=== PATIENT | female | born 1990 | race Caucasian/White ===

== ENCOUNTER 2017-07-24 19:35 | Emergency (ER) | payer OTHER ==
[2017-07-24 20:09] VITALS: BP 119/64; PULSE 78; RESP 17; TEMP 98.5; O2SAT 100; BMI 25.6
[2017-07-24 20:23] LABS: BASO # 0.03 K/mm3 (0.0-2.0); BASO % 0.4 % (0.0-3.0); EOS # 0.1 (0.0-0.7); EOS % 0.7 % (1.5-5.0); GRAN % 58.2 % (50.0-68.0); HEMOGLOBIN 12.5 g/dL (12.0-16.0); LYMPH # 2.3 (1.2-3.4); LYMPH % 34.1 % (22.0-35.0); MEAN CELL VOLUME 89.9 fl (80.0-105.0); MEAN CORPUSCULAR HEMOGLOBIN 29.4 pg (25.0-35.0); MEAN CORPUSCULAR HGB CONC 32.7 g/dl (31.0-37.0); MEAN PLATELET VOLUME 9.8 fl (7.0-11.0); MONO # 0.5 (0.1-0.6); MONO % 6.6 % (1.0-6.0); RBC 4.25 10^6/uL (3.5-6.1); RED CELL DISTRIBUTION WIDTH 13.4 % (11.5-14.5); WHITE BLOOD COUNT 6.9 10^3/ul (4.5-11.0)
[2017-07-24 20:34] LABS: ALB/GLOB RATIO 1.2 (1.1-1.8); ALBUMIN 4.2 g/dL (3.0-4.8); ALT/SGPT 29 U/L (7-56); AST/SGOT 26 U/L (14-36); BLOOD UREA NITROGEN 21 mg/dL (7-21); CALCIUM 9.9 mg/dL (8.4-10.5); GFR AFRICAN-AMERICAN > 60; GFR NON-AFRICAN AMERICAN > 60
[2017-07-24 20:45] LABS: TROPONIN I < 0.01 ng/mL
[2017-07-24 20:50] LABS: URINE BILIRUBIN NEGATIVE (NEGATIVE); URINE BLOOD NEGATIVE (NEGATIVE); URINE GLUCOSE (UA) NEGATIVE (NEGATIVE); URINE LEUKOCYTE ESTERASE SMALL Leu/uL (NEGATIVE); URINE NITRATE NEGATIVE (NEGATIVE); URINE PROTEIN NEGATIVE mg/dL (<30 mg/dL); URINE UROBILINOGEN 0.2 E.U./dL (<1 E.U./dL)
[2017-07-24 20:53] LABS: URINE APPEARANCE CLEAR (CLEAR); URINE COLOR YELLOW (YELLOW)
[2017-07-24 21:10] LABS: URINE BACTERIA FEW (NEG); URINE RBC NEGATIVE /hpf (0-2)
--- NOTE | 2017-07-24 21:20 | ED PDOC ---
Arrival/HPI - General Chief Complaint: Chest Pain Time Seen by Provider: 07/24/17 19:38 Historian: Patient - History of Present Illness Narrative History of Present Illness (Text): 07/24/17 20:10 Indira Salazar is a 27 year old female who presents to the Emergency department complaining of left-sided chest pain today. Patient states pain is worse with deep inspirations, movement, and palpation of the area. Patient denies any fever, chills, shortness of breath, nausea, vomiting, diarrhea, urinary symptoms, back pain, neck pain, headache, dizziness, or any other complaints. Symptom Onset: Gradual Symptom Course: Unchanged Activities at Onset: Light Context: Home Past Medical History - Provider Review Nursing Documentation Reviewed: Yes - Genitourinary/Gynecological Hx Genitourinary Disorders: Yes Other/Comment: endometriosis - Psychiatric Hx Psychophysiologic Disorder: No Hx Substance Use: No Family/Social History - Physician Review Nursing Documentation Reviewed: Yes Family/Social History: Unknown Family HX Smoking Status: Never Smoked Hx Alcohol Use: No Hx Substance Use: No Allergies/Home Meds Allergies/Adverse Reactions: Allergies No Known Allergies Allergy (Verified 07/24/17 20:10) Review of Systems - Physician Review All systems were reviewed & negative as marked: Yes - Review of Systems Constitutional: Normal. absent: Fevers Eyes: Normal ENT: Normal Respiratory: Normal. absent: SOB, Cough Cardiovascular: Chest Pain Gastrointestinal: Normal. absent: Abdominal Pain, Diarrhea, Nausea, Vomiting Genitourinary Female: Normal. absent: Dysuria, Frequency, Hematuria, Urine Output Changes Musculoskeletal: Normal. absent: Back Pain, Neck Pain Skin: Normal. absent: Rash Neurological: Normal. absent: Headache, Dizziness Endocrine: Normal Hemo/Lymphatic: Normal Psychiatric: Normal Physical Exam Vital Signs Reviewed: Yes Vital Signs Temp Pulse Resp BP Pulse Ox 07/24/17 19:44 98.5 F 78 17 119/64 100 Temperature: Afebrile Blood Pressure: Normal Pulse: Regular Respiratory Rate: Normal Appearance: Positive for: Well-Appearing, Non-Toxic, Comfortable Pain Distress: None Mental Status: Positive for: Alert and Oriented X 3 - Systems Exam Head: Present: Atraumatic, Normocephalic Pupils: Present: PERRL Extroacular Muscles: Present: EOMI Conjunctiva: Present: Normal Mouth: Present: Moist Mucous Membranes Neck: Present: Normal Range of Motion Respiratory/Chest: Present: Clear to Auscultation, Good Air Exchange, Tender to Palpation (Left-sided anterior chest wall tenderness). No: Respiratory Distress , Accessory Muscle Use Cardiovascular: Present: Regular Rate and Rhythm, Normal S1, S2. No: Murmurs Abdomen: Present: Normal Bowel Sounds. No: Tenderness, Distention, Peritoneal Signs Back: Present: Normal Inspection Upper Extremity: Present: Normal Inspection. No: Cyanosis, Edema Lower Extremity: Present: Normal Inspection. No: Edema Neurological: Present: GCS=15, CN II-XII Intact, Speech Normal Skin: Present: Warm, Dry, Normal Color. No: Rashes Psychiatric: Present: Alert, Oriented x 3, Normal Insight, Normal Concentration Medical Decision Making ED Course and Treatment: 07/24/17 20:10 Impression: 27 year old female complaining of left-sided chest pain. Differential Diagnosis included but are not limited to: musculoskeletal pain vs. costochonritis vs. PE vs. chest pain Plan: -- EKG -- Chest X-ray -- Labs, cardiac enzymes, D-dimer -- Urinalysis, urine cultures -- Toradol -- Reassess and disposition Progress Notes: Reviewed EKG, sinus rhythm at 80 bpm. Sinus arrhythmia. No acute changes. 07/24/17 21:20 Chest X-ray reviewed, shows no acute processes. 07/24/17 21:35 On re-evaluation, patient feels better and is in no acute distress. I have discussed the results and plan with the patient, who expresses understanding. Patient in agreement with plan to be discharged home. Patient is stable for discharge. Patient was instructed to follow up with physician or return if symptoms worsen or new concerning symptoms arise. - Lab Interpretations Lab Results: 07/24/17 19:50 07/24/17 19:50 Lab Results 07/24/17 20:20: Urine Color Yellow, Urine Appearance Clear, Urine pH 6.0, Ur Specific [place] >= 1.030, Urine Protein Negative, Urine Glucose (UA) Negative, Urine Ketones Negative, Urine Blood Negative, Urine Nitrate Negative, Urine Bilirubin Negative, Urine Urobilinogen 0.2, Ur Leukocyte Esterase Small H, Urine RBC Negative, Urine WBC 5 - 10, Ur Epithelial Cells 6 - 8, Urine Bacteria Few 07/24/17 19:50: Sodium 140, Potassium 3.6, Chloride 104, Carbon Dioxide 25, Anion Gap 15, BUN 21, Creatinine 0.9, Est GFR ( Amer) > 60, Est GFR (Non- Af Amer) > 60, Random Glucose 87, Calcium 9.9, Magnesium 2.0, Total Bilirubin 0.3, AST 26, ALT 29, Alkaline Phosphatase 49, Lactate Dehydrogenase 435, Total Creatine Kinase 105, Troponin I < 0.01, Total Protein 7.7, Albumin 4.2, Globulin 3.5, Albumin/Globulin Ratio 1.2 07/24/17 19:50: D-Dimer, Quantitative 200 07/24/17 19:50: WBC 6.9, RBC 4.25, Hgb 12.5, Hct 38.2, MCV 89.9, MCH 29.4, MCHC 32.7, RDW 13.4, Plt Count 236, MPV 9.8, Gran % 58.2, Lymph % (Auto) 34.1, Barry % (Auto) 6.6 H, Eos % (Auto) 0.7 L, Baso % (Auto) 0.4, Gran # 4.00, Lymph # ( Auto) 2.3, Barry # (Auto) 0.5, Eos # (Auto) 0.1, Baso # (Auto) 0.03 I have reviewed the lab results: Yes - RAD Interpretation Radiology Orders: 07/24/17 20:25 CHEST PORTABLE [RAD] Stat Milking Worker: ED Physician - EKG Interpretation Interpreted by ED Physician: Yes Type: 12 lead EKG - Medication Orders Current Medication Orders: Discontinued Medications Ketorolac Tromethamine (Toradol) 30 mg IVP ONCE ONE Stop: 07/24/17 20:43 Last Admin: 07/24/17 20:59 Dose: 30 mg MAR Pain Assessment Document 07/24/17 20:59 CNR (Rec: 07/24/17 21:00 CNR [id number]) Pain Reassessment Is this a pain reassessment? Yes IVP Administration Document 07/24/17 20:59 CNR (Rec: 07/24/17 21:00 CNR [id number]) Charges for Administration # of IVP Administrations 1 - Scribe Statement The provider has reviewed the documentation as recorded by the Scribdarrius Garcia All medical record entries made by the Scribe were at my direction and personally dictated by me. I have reviewed the chart and agree that the record accurately reflects my personal performance of the history, physical exam, medical decision making, and the department course for this patient. I have also personally directed, reviewed, and agree with the discharge instructions and disposition. Disposition/Present on Arrival - Present on Arrival Any Indicators Present on Arrival: No History of DVT/PE: No History of Uncontrolled Diabetes: No Urinary Catheter: No History of Decub. Ulcer: No History Surgical Site Infection Following: None - Disposition Have Diagnosis and Disposition been Completed?: Yes Diagnosis: Chest pain Disposition: HOME/ ROUTINE Disposition Time: 21:35 Condition: GOOD Discharge Instructions (ExitCare): Shingles, Chest Pain That Is Not Caused by the Heart (DC), Chest Pain (ED) Prescriptions: Famciclovir [Famvir] 500 mg PO TID #21 tab Referrals: Papo Jack MD [Primary Care Provider] - Follow up with primary Forms: [facility] ([place]), WORK NOTE
--- NOTE | 2017-07-25 09:49 | RAD ---
HISTORY: Chest pain COMPARISON: No prior. FINDINGS: LUNGS: The lungs are well inflated and clear. PLEURA: No significant pleural effusion identified, no pneumothorax apparent. CARDIOVASCULAR: Normal. OSSEOUS STRUCTURES: No significant abnormalities. VISUALIZED UPPER ABDOMEN: Normal. OTHER FINDINGS: None. IMPRESSION: No active pulmonary disease.
--- NOTE | 2017-07-25 10:45 | CARD ---
APPROVED REPORT EKG Measurement Heart [id number] <Conclusion> Sinus rhythm with marked sinus arrhythmia Otherwise normal ECG
== END 2017-07-24 21:38 | disposition home or self-care (01) ==
LOC: ED 19:35
DX: R07.9 Chest pain, unspecified (principal)
CPT/HCPCS: 71045; 80053; 81001; 82550; 83615; 83735; 84484; 85025; 85378; 87086; 93005; 96374; 99283; J1885

== ENCOUNTER 2018-01-06 14:16 | Inpatient (IN) | payer MEDICAID, OTHER ==
[2018-01-06] MEDS ORDERED: Sodium Chloride 0.9% 1,000 ML IV STA (14:41)
[2018-01-06 15:11] LABS: VENOUS BLOOD GAS PO2 39 mm/Hg (30-55); VENOUS BLOOD PH 7.27 (7.32-7.43)
[2018-01-06 15:14] LABS: BASO # 0.02 K/mm3 (0.0-2.0); BASO % 0.3 % (0.0-3.0); EOS # 0.1 (0.0-0.7); EOS % 0.8 % (1.5-5.0); GRAN # 3.76 (1.4-6.5); GRAN % 57.1 % (50.0-68.0); HEMOGLOBIN 13.9 g/dL (12.0-16.0); LYMPH # 2.2 (1.2-3.4); MEAN CELL VOLUME 87.9 fl (80.0-105.0); MEAN CORPUSCULAR HEMOGLOBIN 29.4 pg (25.0-35.0); MEAN CORPUSCULAR HGB CONC 33.4 g/dl (31.0-37.0); MEAN PLATELET VOLUME 10.2 fl (7.0-11.0); MONO # 0.5 (0.1-0.6); MONO % 7.8 % (1.0-6.0); RBC 4.73 10^6/uL (3.5-6.1); RED CELL DISTRIBUTION WIDTH 13.3 % (11.5-14.5); WHITE BLOOD COUNT 6.6 10^3/ul (4.5-11.0)
[2018-01-06 15:22] LABS: INR 1.06; PARTIAL THROMBOPLASTIN TIME 31.7 Seconds (25.1-36.5); PROTHROMBIN TIME 12.1 SECONDS (9.4-12.5)
[2018-01-06 15:24] LABS: ALB/GLOB RATIO 1.3 (1.1-1.8); ALBUMIN 4.3 g/dL (3.0-4.8); ALT/SGPT 21 U/L (7-56); AST/SGOT 20 U/L (14-36); BLOOD UREA NITROGEN 12 mg/dL (7-21); CALCIUM 9.9 mg/dL (8.4-10.5); GFR AFRICAN-AMERICAN > 60; GFR NON-AFRICAN AMERICAN > 60; SALICYLATE < 1 mg/dL (2.0-20.0)
--- NOTE | 2018-01-06 15:37 | ED PDOC ---
Arrival/HPI - General Chief Complaint: Psychiatric Evaluation Time Seen by Provider: 01/06/18 14:31 - Critical Care Critical Care Minutes: 30 minutes - History of Present Illness Narrative History of Present Illness (Text): 01/06/18 15:37 A 27 year old female, whose past medical history includes depression, presents to the emergency department accompanied by mother complaining of suicide ideation. Mother reports her daughter called her at work saying she was suicidal. Patients mother came home to find her daughter vomiting next to an empty bottle of pills to which she called EMS. Mother notes she does not know whether the empty body of pills was midol or tylenol. Patient has a hx of depression. Patient has had no prior hospitalization and no prior suicide attempts. Patient is complaining of epigastric pain and says she wants to go home. Communication is limited due to patients cooperation, HPI and ROS affected. 01/06/18 16:02 Time/Duration: 4-6 hours (earlier today ) Symptom Onset: Gradual Symptom Course: Unchanged Context: Home Past Medical History - Provider Review Nursing Documentation Reviewed: Yes - Genitourinary/Gynecological Hx Genitourinary Disorders: Yes Other/Comment: endometriosis - Psychiatric Hx Psychophysiologic Disorder: No Hx Substance Use: No Family/Social History - Physician Review Nursing Documentation Reviewed: Yes Family/Social History: Unknown Family HX Smoking Status: Never Smoked Hx Alcohol Use: No Hx Substance Use: No Allergies/Home Meds Allergies/Adverse Reactions: Allergies No Known Allergies Allergy (Verified 01/06/18 14:52) Home Medications: Home Meds Medication Instructions Recorded Confirmed No Known Home Med 01/06/18 01/06/18 Review of Systems - Review of Systems Systems not reviewed;Unavailable: Uncooperative Gastrointestinal: Nausea, Vomiting, Other (epigastric pain) Physical Exam Vital Signs Reviewed: Yes Vital Signs Temp Pulse Resp BP Pulse Ox 01/06/18 14:35 98.2 F 82 18 119/73 100 01/06/18 14:26 97.8 F 82 18 110/73 99 Temperature: Afebrile Blood Pressure: Normal Pulse: Regular Respiratory Rate: Normal Appearance: Positive for: Well-Appearing, Non-Toxic, Comfortable Pain Distress: None Mental Status: Positive for: Alert and Oriented X 3 - Systems Exam Head: Present: Atraumatic, Normocephalic Pupils: Present: PERRL Extroacular Muscles: Present: EOMI Conjunctiva: Present: Normal Mouth: Present: Moist Mucous Membranes Neck: Present: Normal Range of Motion Respiratory/Chest: Present: Clear to Auscultation, Good Air Exchange. No: Respiratory Distress, Accessory Muscle Use Cardiovascular: Present: Regular Rate and Rhythm, Normal S1, S2. No: Murmurs Abdomen: No: Tenderness, Distention, Peritoneal Signs Back: Present: Normal Inspection Upper Extremity: Present: Normal Inspection. No: Cyanosis, Edema Lower Extremity: Present: Normal Inspection. No: Edema Neurological: Present: GCS=15, CN II-XII Intact, Speech Normal Skin: Present: Warm, Dry, Normal Color. No: Rashes Psychiatric: Present: Alert, Oriented x 3, Depressed Mood, Suicidal Ideation ( tearful and agitated), Other Medical Decision Making ED Course and Treatment: 01/06/18 15:40 Impression: A 27 year old female, whose past medical history includes depression , presents to the emergency department accompanied by mother complaining of suicide ideation. Plan: -- Venous blood gas -- EKG -- Drug Screen, Urine Stat -- EKG -- Chest X-ray -- Zofran -- IV fluids -- AES Crisis Evaluation -- HCG -- Urinalysis -- Reassess and disposition Prior Visits: Notes and results from previous visits were reviewed. Patient was last seen in the emergency department on EKG shows NSR at 66bpm with normal intervals and no ST changes Progress Notes: 01/06/18 15:43 Spoke to Poison control. Based on Tylenol level, recommended to start on NAC immediately. Also recommended repeat labs in 1 hour before ending 21 hour treatment 01/06/18 15:[address] Francois, hospitalist, who is aware and agrees with Emergency department management plan of recommendation to ICU. Case discussed with Dr. Manzano, ICU, patient recommended to ICU. Requesting GI consult - Lab Interpretations Lab Results: 01/06/18 14:40 01/06/18 14:40 Lab Results 01/06/18 15:45: Urine Color Yellow, Urine Appearance Clear, Urine pH 7.0, Ur Specific [place] 1.010, Urine Protein Negative, Urine Glucose (UA) Negative, Urine Ketones Negative, Urine Blood Trace-intact H, Urine Nitrate Negative, Urine Bilirubin Negative, Urine Urobilinogen 0.2, Ur Leukocyte Esterase Moderate H, Urine RBC Pending, Urine WBC Pending, Urine HCG, Qual Negative 01/06/18 14:40: Beta HCG, Quant < 2.39 01/06/18 14:40: pO2 39, VBG pH 7.27 L, VBG pCO2 59.0, VBG HCO3 27.1, VBG Total CO2 28.9 H, VBG O2 Sat (Calc) 71.6 H, VBG Base Excess -1.0 L, VBG Potassium 4.1 , Sodium 140.0, Chloride 105.0, Glucose 90, Lactate 2.2 H, FiO2 21.0, Venous Blood Potassium 4.1 01/06/18 14:40: PT 12.1, INR 1.06, APTT 31.7 01/06/18 14:40: Alcohol, Quantitative < 10 01/06/18 14:40: Salicylates < 1 L, Acetaminophen 47.0 H 01/06/18 14:40: Sodium 143, Chloride 105, Potassium 4.5, Carbon Dioxide 26, Anion Gap 16, BUN 12, Creatinine 0.8, Est GFR ( Amer) > 60, Est GFR (Non- Af Amer) > 60, Random Glucose 89, Calcium 9.9, Magnesium 2.0, Total Bilirubin 0.5, AST 20, ALT 21, Alkaline Phosphatase 55, Total Creatine Kinase 109, Total Protein 7.4, Albumin 4.3, Globulin 3.2, Albumin/Globulin Ratio 1.3 01/06/18 14:40: WBC 6.6, RBC 4.73, Hgb 13.9, Hct 41.6, MCV 87.9, MCH 29.4, MCHC 33.4, RDW 13.3, Plt Count 250, MPV 10.2, Gran % 57.1, Lymph % (Auto) 34.0, Henry % (Auto) 7.8 H, Eos % (Auto) 0.8 L, Baso % (Auto) 0.3, Gran # 3.76, Lymph # ( Auto) 2.2, Henry # (Auto) 0.5, Eos # (Auto) 0.1, Baso # (Auto) 0.02 - RAD Interpretation Radiology Orders: 01/06/18 14:40 CHEST PORTABLE [RAD] Stat - Medication Orders Current Medication Orders: Acetylcysteine 9,870 mg/ (Dextrose) 249.35 mls @ 200 mls/hr IV .Q1H15M ONE Stop: 01/06/18 17:02 Acetylcysteine 3,285 mg/ (Dextrose) 516.425 mls @ 125 mls/hr IV .Q4H8M ONE Stop: 01/06/18 20:56 Discontinued Medications Sodium Chloride (Sodium Chloride 0.9%) 1,000 mls @ 999 mls/hr IV .Q1H1M STA Stop: 01/06/18 15:41 Last Admin: 01/06/18 14:57 Dose: 999 mls/hr eMAR Start Stop Document 01/06/18 14:57 [email or web address] (Rec: 01/06/18 14:57 [email or web address] [id number]) Intravenous Solution Start Date 01/06/18 Start Time 14:57 End Date 01/06/18 Ondansetron HCl (Zofran Inj) 4 mg IVP STAT STA Stop: 01/06/18 15:05 Last Admin: 01/06/18 16:26 Dose: 4 mg IVP Administration Document 01/06/18 16:26 [email or web address] (Rec: 01/06/18 16:26 [email or web address] [id number]) Charges for Administration # of IVP Administrations 1 - Scribe Statement The provider has reviewed the documentation as recorded by the Jamaica Rosenthal All medical record entries made by the [place] were at my direction and personally dictated by me. I have reviewed the chart and agree that the record accurately reflects my personal performance of the history, physical exam, medical decision making, and the department course for this patient. I have also personally directed, reviewed, and agree with the discharge instructions and disposition. Disposition/Present on Arrival - Present on Arrival Any Indicators Present on Arrival: No History of DVT/PE: No History of Uncontrolled Diabetes: No Urinary Catheter: No History of Decub. Ulcer: No History Surgical Site Infection Following: None - Disposition Have Diagnosis and Disposition been Completed?: Yes Diagnosis: Tylenol overdose, Depression Disposition: HOSPITALIZED Disposition Time: 16:04 Patient Plan: ICU Patient Problems: Current Active Problems Problem Status Onset Tylenol overdose Acute Depression Acute Condition: FAIR
[2018-01-06] MEDS ORDERED: ACETYLCYSTEINE IV ONE ×3 (15:48→23:37)
[2018-01-06] MEDS ORDERED: DEXTROSE 5% IV ONE ×3 (15:48→23:37)
[2018-01-06] MEDS ORDERED: WATER IV ONE ×3 (15:48→23:37)
[2018-01-06 16:21] LABS: URINE BILIRUBIN NEGATIVE (NEGATIVE); URINE BLOOD TRACE-INTACT (NEGATIVE); URINE GLUCOSE (UA) NEGATIVE (NEGATIVE); URINE LEUKOCYTE ESTERASE MODERATE Leu/uL (NEGATIVE); URINE PROTEIN NEGATIVE mg/dL (<30 mg/dL); URINE UROBILINOGEN 0.2 E.U./dL (<1 E.U./dL)
[2018-01-06 16:24] LABS: URINE APPEARANCE CLEAR (CLEAR); URINE COLOR YELLOW (YELLOW)
[2018-01-06 16:25] LABS: HCG,QUALITATIVE URINE NEGATIVE (NEGATIVE)
[2018-01-06 16:35] LABS: URINE BACTERIA MANY (NEG); URINE WBC 20 - 25 /hpf (0-6)
[2018-01-06 16:37] LABS: BARBITURATES, UR NEGATIVE (NEGATIVE); BENZODIAZEPINES, UR NEGATIVE (NEGATIVE); OPIATES, UR NEGATIVE (NEGATIVE); PHENCYCLIDINE, UR NEGATIVE (NEGATIVE)
--- NOTE | 2018-01-06 17:04 | CP.PCM.CON ---
<Zak Swain - Last Filed: 01/06/18 16:55> History of Present Illness - History of Present Illness History of Present Illness: Zak Swain, PGY-1 ICU Consult Note This is a 27 year old female with PMH of depression presenting to the ED after overdose with 14 tablets of tylenol/midol. Patient is unsure about dosage and brand. Mom, present at bedside, states she received call from daughter concerning for suicidal ideation while at work and came home to find daughter nauseas and vomiting. She is being given acetylcysteine while in ED per poison control. Labs in ED are unremarkable for transaminitis. She currently admits to nausea and mild upper abdominal pain. She denies CP, SOB, headaches, back pain, urinary complaints, hematemesis, fevers, chills and recent drug use. 12 point ROS noted here, otherwise negative. PMH: depression SH: denies smoking, alcohol use, and drug use Sx: denies surgical history FH: unremarkable All: NKDA Meds: Denies any home medications Past Patient History - Past Social History Smoking Status: Never Smoked - GENITOURINARY/GYNECOLOGICAL Hx Genitourinary Disorders: Yes Other/Comment: endometriosis - PSYCHIATRIC Hx Psychophysiologic Disorder: No Hx Substance Use: No - SURGICAL HISTORY Hx Surgeries: No Meds Allergies/Adverse Reactions: Allergies Allergy/AdvReac Type Severity Reaction Status Date / Time No Known Allergies Allergy Verified 01/06/18 14:52 - Medications Medications: Current Medications Acetylcysteine 9,870 mg/ (Dextrose) 249.35 mls @ 200 mls/hr IV .Q1H15M ONE Stop: 01/06/18 17:02 Last Admin: 01/06/18 16:54 Dose: 200 mls/hr Acetylcysteine 3,285 mg/ (Dextrose) 516.425 mls @ 125 mls/hr IV .Q4H8M ONE Stop: 01/06/18 20:56 Physical Exam - Constitutional Appears: No Acute Distress - Head Exam Head Exam: ATRAUMATIC, NORMAL INSPECTION - Eye Exam Eye Exam: EOMI, Normal appearance Pupil Exam: PERRL - ENT Exam ENT Exam: Mucous Membranes Moist - Neck Exam Neck exam: Positive for: Normal Inspection - Respiratory Exam Respiratory Exam: Clear to Auscultation Bilateral. absent: Decreased Breath Sounds, Wheezes - Cardiovascular Exam Cardiovascular Exam: RRR, +S1, +S2 - GI/Abdominal Exam GI & Abdominal Exam: Normal Bowel Sounds, Soft. absent: Guarding Additional comments: mild tenderness noted in epigastric region - Extremities Exam Extremities exam: Positive for: normal inspection, pedal pulses present - Neurological Exam Neurological exam: Alert, CN II-XII Intact, Oriented x3 - Psychiatric Exam Psychiatric exam: Anxious Results - Vital Signs Recent Vital Signs: Last Vital Signs Temp 98.4 F 01/06/18 16:40 Pulse 80 01/06/18 16:40 Resp 17 01/06/18 16:40 BP 117/57 L 01/06/18 16:40 Pulse Ox 100 01/06/18 16:40 - Labs Result Diagrams: 01/06/18 14:40 01/06/18 14:40 Assessment & Plan - Assessment and Plan (Free Text) Assessment: This is a 27 year old with PMH of depression presenting to the ICU for management of acetominophen overdose on acetlycysteine drip per poison control recommendations. Plan: Neuro: -maintain normothermia -AAO x3, moving extremities spontaneously past midline Psych: -anxious and guarded -psych on consult, Dr. Celaya -1:1 -GI: -LFT at 14:40 reveal AST/ALT 20/21 WNL -will monitor CMP q6 -monitor acetominophen level q6 -follow up with poison control recommendations -GI on consult Cardio: -maintain MAP>65 -will monitor vitals including HR and BP closely Lungs: -SaO2 >90% -supplementary O2 PRN Renal: -maintain euvolemia -avoid nephrotoxic agents, hypochloremia -replace electrolytes as needed -BUN/Cr 12/0.8 -VBG today reads pH/pO2/pCO2/bicarb of 7.27/39/59/27.1 on FiO2 of 21. Gap of 12 -urine shows acetominophen level of 47 at 14:40 Heme: -Hg today is 13.9 -PT/INR/PTT reveal 12.1/1.06/31.7 -monitor PT/INR q6 Endo: -maintain euglycemia ID: -WBC is today 6.6, afebrile -U/A revealed moderate leukocyte esterase, 20-25 WBC, many urine bacteria -Urine culture pending <Dashawn Wheatley - Last Filed: 01/06/18 17:35> Meds - Medications Medications: Current Medications Acetylcysteine 3,285 mg/ (Dextrose) 516.425 mls @ 125 mls/hr IV .Q4H8M ONE Stop: 01/06/18 20:56 Results - Vital Signs Recent Vital Signs: Last Vital Signs Temp 98.4 F 01/06/18 16:40 Pulse 80 01/06/18 16:40 Resp 17 01/06/18 16:40 BP 117/57 L 01/06/18 16:40 Pulse Ox 100 01/06/18 16:40 - Labs Result Diagrams: 01/06/18 14:40 01/06/18 14:40 Attending/Attestation - Attestation I have personally seen and examined this patient.: Yes I have fully participated in the care of the patient.: Yes I have reviewed all pertinent clinical information: Yes Notes (Text): 01/06/18 17:33 The patient was seen and examined at the bedside. Patient care was discussed with resident Medical records, lab studies, and imaging were reviewed and management issues were discussed and formulated. Agree with above treatment plans as outlined in 's note with addition of the following: Acetaminophen overdose \ Major depression \ -hemodynamic monitoring to maintain MAP>65 -O2 supplementation to maintain Spo2>90 Pao2>60; currently on room air -f\u Bun\Cr and U\o -f\u serial LFT, INR and acetaminophen levels -NPO diet and aspiration precautions; GI team eval -Poison control notified and are following the pt as per ED team -pshychiatry team eval -continue 1:1 observation -continue NAC drip as per poison control recommendations -DVT prophylaxis CCM time 30min
--- NOTE | 2018-01-06 17:25 | CARD ---
APPROVED REPORT Date of service: 01/06/2018 EKG Measurement Heart [id number] <Conclusion> Normal sinus rhythm with sinus arrhythmia Normal ECG
--- NOTE | 2018-01-06 17:44 | RAD ---
Date of service: 01/06/2018 HISTORY: overdose COMPARISON: No prior. FINDINGS: LUNGS: No active pulmonary disease. PLEURA: No significant pleural effusion identified, no pneumothorax apparent. CARDIOVASCULAR: Normal. OSSEOUS STRUCTURES: No significant abnormalities. VISUALIZED UPPER ABDOMEN: Normal. OTHER FINDINGS: None. IMPRESSION: No active disease.
--- NOTE | 2018-01-06 17:46 | CP.PCM.CON ---
History of Present Illness - History of Present Illness History of Present Illness: GI Fellow PGY5 Consult Note This is a 27 year old female with PMH of depression presenting to the ED after overdose of medication. Patient is unsure about dosage and brand of medication. Per pt's mom at bedside, states she a received call from her daughter about suicidal ideation and came home to find her daughter vomiting. There was a reported empty bottle of pills in the bathroom which the mother did not recognize. Pt reports it could have been midol or Tylenol but cannot recall. 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 Pt's acetaminophen level was elevated at 47 and is being given acetylcysteine in ED. She currently admits to nausea and mild upper abdominal pain. She denies CP, SOB, headaches, back pain, urinary complaints, hematemesis, fevers, chills and recent drug use. ROS: A 12pt ROS was negative except as above PMH: As stated above PSH: None SH: Denies etoh, tobacco or illicit drug use FH: Negative for liver or colon cancer Past Patient History - Past Social History Smoking Status: Never Smoked - GENITOURINARY/GYNECOLOGICAL Hx Genitourinary Disorders: Yes Other/Comment: endometriosis - PSYCHIATRIC Hx Psychophysiologic Disorder: No Hx Substance Use: No - SURGICAL HISTORY Hx Surgeries: No Meds Allergies/Adverse Reactions: Allergies Allergy/AdvReac Type Severity Reaction Status Date / Time No Known Allergies Allergy Verified 01/06/18 14:52 - Medications Medications: Current Medications Acetylcysteine 3,285 mg/ (Dextrose) 516.425 mls @ 125 mls/hr IV .[id number] ONE Stop: 01/06/18 20:56 Physical Exam - Constitutional Appears: Non-toxic, No Acute Distress, Agitated - Head Exam Head Exam: ATRAUMATIC, NORMAL INSPECTION, NORMOCEPHALIC - Eye Exam Eye Exam: EOMI, Normal appearance, PERRL Pupil Exam: PERRL - ENT Exam ENT Exam: Mucous Membranes Moist - Neck Exam Neck exam: Positive for: Full Rom, Normal Inspection - Respiratory Exam Respiratory Exam: Clear to Auscultation Bilateral, NORMAL BREATHING PATTERN - Cardiovascular Exam Cardiovascular Exam: Tachycardia, +S1, +S2 - GI/Abdominal Exam GI & Abdominal Exam: Normal Bowel Sounds, Soft. absent: Distended, Guarding, Organomegaly, Tenderness - Rectal Exam Rectal Exam: Deferred - Extremities Exam Extremities exam: Positive for: full ROM, normal inspection - Neurological Exam Neurological exam: Oriented x3 - Psychiatric Exam Psychiatric exam: Agitated, Anxious, Depressed - Skin Skin Exam: Dry, Intact, Normal Color, Warm Results - Vital Signs Recent Vital Signs: Last Vital Signs Temp 98.4 F 01/06/18 16:40 Pulse 80 01/06/18 16:40 Resp 17 01/06/18 16:40 BP 117/57 L 01/06/18 16:40 Pulse Ox 100 01/06/18 16:40 - Labs Result Diagrams: 01/06/18 14:40 01/06/18 14:40 Assessment & Plan - Assessment and Plan (Free Text) Assessment: This is a 27 year old with PMH of depression presenting for acetaminophen overdose and suicidal ideation. 1. Acetaminophen overdose 2. Suicidal ideation Plan: -Continue supportive care -Acetaminophen level is 47 -Plan for NAC protocol treatment -Monitor liver function with LFTs and INR daily -Pt will need close followup for at least 48hrs -No plan for abdominal US at this time -Psychiatric evaluation -Will follow pt closely The above H/P and A/P was discussed with Dr. Burnham who agrees with above mentioned plan of care.
--- NOTE | 2018-01-06 18:12 | CP.PCM.HP ---
<Bebeto Mcgill - Last Filed: 01/06/18 19:00> History of Present Illness - History of Present Illness History of Present Illness: Bebeto Mcgill D.O PGY-1, H & P for CC: Acetaminophen overdose HPI: Patient is a 27 yo female with PMH of depression (not on antidepressants) who was brought in by her mother to the ED after ingesting a "large" bottle of Tylenol but is unsure of how much pills she took. Her mother and father was at bedside. The patient's father states that she started taking 4-5 Tylenol pills every 2 hours for a pounding headache in the past 2 days. As per mother, she received a call from her daughter while she was at work today with suicidal ideation. The mother rushed home and found the patient vomiting and immediately took her to the ED. The patient states that the vomiting was non-bloody. The patient stopped taking her antidepressants due to the side effects and has not seen her psychiatrist for a while due to her insurance being changed recently. Patient denies fever, chills, chest pain, shortness of breath, diarrhea, and urinary symptoms. In ED: Poison control contacted. Based on Tylenol level, recommended to start on NAC immediately 12 point ROS negative except as indicated in HPI Past medical history: Depression Surgical History: denies Allergies: NKDA Social History: Denies alcohol, tobacco, and drug use. Lives at home with mom. 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 Family History: non contributory Medications: denies PMD: Dr. Hilton Psychiatrist: Dr. Capellan in [place] Present on Admission - Present on Admission Any Indicators Present on Admission: No History of DVT/PE: No History of Uncontrolled Diabetes: No Urinary Catheter: No Decubitus Ulcer Present: No Review of Systems - Review of Systems Review of Systems: 12 point ROS negative except as indicated in HPI Past Patient History - Past Social History Smoking Status: Never Smoked - GENITOURINARY/GYNECOLOGICAL Hx Genitourinary Disorders: Yes Other/Comment: endometriosis - PSYCHIATRIC Hx Psychophysiologic Disorder: No Hx Substance Use: No - SURGICAL HISTORY Hx Surgeries: No Meds Allergies/Adverse Reactions: Allergies Allergy/AdvReac Type Severity Reaction Status Date / Time No Known Allergies Allergy Verified 01/06/18 14:52 Physical Exam - Constitutional Appears: No Acute Distress Additional comments: Appears anxious - Head Exam Head Exam: ATRAUMATIC, NORMAL INSPECTION - Eye Exam Eye Exam: Normal appearance, PERRL - ENT Exam ENT Exam: Mucous Membranes Moist - Neck Exam Neck exam: Positive for: Normal Inspection - Respiratory Exam Respiratory Exam: Clear to Auscultation Bilateral. absent: Rales, Rhonchi, Wheezes - Cardiovascular Exam Cardiovascular Exam: REGULAR RHYTHM, +S1, +S2. absent: Gallop, Rubs, Systolic Murmur - GI/Abdominal Exam GI & Abdominal Exam: Normal Bowel Sounds, Soft, Tenderness Additional comments: Tender to palpation in epigastric region - Extremities Exam Additional comments: Slight tremors in upper extremities - Neurological Exam Neurological exam: Alert - Psychiatric Exam Psychiatric exam: Anxious Additional comments: Evasive - Skin Skin Exam: Dry, Intact, Warm Results - Vital Signs Recent Vital Signs: Last Vital Signs Temp 98.4 F 01/06/18 16:40 Pulse 80 01/06/18 16:40 Resp 17 01/06/18 16:40 BP 117/57 L 01/06/18 16:40 Pulse Ox 100 01/06/18 16:40 - Labs Result Diagrams: 01/06/18 14:40 01/06/18 14:40 Assessment & Plan - Assessment and Plan (Free Text) Assessment: Patient is a 27 y.o female with PMH of depression presenting to the ED with acetaminophen overdose. Poison control was contacted and she was given 2 doses of NAC in the ED. Plan: Acetaminophen overdose: - Poison control was contacted and 2 doses of NAC were given in the ED - Serum acetaminophen level: 47, will continue to monitor - LFT's are normal on admission: AST: 20, ALT: 21, will continue to monitor - Monitor LFT's daily, INR Q6, Acetaminophen levels Q6 - Hepatitis panel ordered - Patient is admitted to ICU - GArianna consulted, Dr. Tovar - Psych consulted, Dr. Celaya - Patient is 1:1 due to suicidal ideation - Zofran 4mg IV Q4H PRN - Liquid diet Asymptomatic UTI - WBC is today 6.6, afebrile - U/A revealed moderate leukocyte esterase, 20-25 WBC, many urine bacteria - Urine culture pending GI/DVT prophylaxis: Protonix and SCD's Patient case reviewed with and plan approved by attending physician, Dr. Francois - Date & Time Date: 01/06/18 Time: 18:29 <Melchor Francois - Last Filed: 01/07/18 07:54> Results - Vital Signs Recent Vital Signs: Last Vital Signs Temp 98.5 F 01/06/18 20:00 Pulse 47 L 01/06/18 23:50 Resp 26 H 01/06/18 23:50 BP 115/59 L 01/06/18 23:30 Pulse Ox 98 01/06/18 23:50 - Labs Result Diagrams: 01/07/18 05:30 01/07/18 05:30 Labs: Laboratory Results - last 24 hr 01/06/18 01/06/18 01/06/18 19:40 19:40 19:40 WBC RBC Hgb Hct MCV MCH MCHC RDW Plt Count MPV Gran % Lymph % (Auto) [place] % (Auto) Eos % (Auto) Baso % (Auto) Gran # Lymph # (Auto) [place] # (Auto) Eos # (Auto) Baso # (Auto) PT 13.4 H INR 1.17 pO2 43 VBG pH 7.30 L VBG pCO2 52.0 VBG HCO3 25.6 VBG Total CO2 27.2 VBG O2 Sat (Calc) 78.2 H VBG Base Excess -1.6 L VBG Potassium 3.8 Sodium 141.0 Chloride 105.0 Glucose 109 H Lactate 2.1 FiO2 21.0 Potassium Carbon Dioxide Anion Gap BUN Creatinine Est GFR ( Amer) Est GFR (Non-Af Amer) Random Glucose Calcium Total Bilirubin AST ALT Alkaline Phosphatase Total Protein Albumin Globulin Albumin/Globulin Ratio Venous Blood Potassium 3.8 Acetaminophen 27.0 H 01/06/18 01/06/18 01/07/18 23:48 23:48 05:30 WBC 5.1 D RBC 4.46 Hgb 13.1 Hct 38.7 MCV 86.8 MCH 29.4 MCHC 33.9 RDW 13.3 Plt Count 216 MPV 9.8 Gran % 37.8 L Lymph % (Auto) 51.6 H [place] % (Auto) 9.2 H Eos % (Auto) 1.0 L Baso % (Auto) 0.4 Gran # 1.93 Lymph # (Auto) 2.6 [place] # (Auto) 0.5 Eos # (Auto) 0.1 Baso # (Auto) 0.02 PT INR pO2 48 VBG pH 7.35 VBG pCO2 46.0 VBG HCO3 25.4 VBG Total CO2 26.8 VBG O2 Sat (Calc) 87.2 H VBG Base Excess -0.6 L VBG Potassium 3.7 Sodium 140.0 Chloride 106.0 Glucose 96 Lactate 1.7 FiO2 21.0 Potassium Carbon Dioxide Anion Gap BUN Creatinine Est GFR ( Amer) Est GFR (Non-Af Amer) Random Glucose Calcium Total Bilirubin AST ALT Alkaline Phosphatase Total Protein Albumin Globulin Albumin/Globulin Ratio Venous Blood Potassium 3.7 Acetaminophen 12.0 01/07/18 01/07/18 01/07/18 05:30 05:30 05:30 WBC RBC Hgb Hct MCV MCH MCHC RDW Plt Count MPV Gran % Lymph % (Auto) [place] % (Auto) Eos % (Auto) Baso % (Auto) Gran # Lymph # (Auto) [place] # (Auto) Eos # (Auto) Baso # (Auto) PT 14.8 H INR 1.28 pO2 VBG pH VBG pCO2 VBG HCO3 VBG Total CO2 VBG O2 Sat (Calc) VBG Base Excess VBG Potassium Sodium 142 Chloride 107 Glucose Lactate FiO2 Potassium 3.6 Carbon Dioxide 22 Anion Gap 16 BUN 7 Creatinine 0.7 Est GFR ( Amer) > 60 Est GFR (Non-Af Amer) > 60 Random Glucose 80 Calcium 9.1 Total Bilirubin 0.4 AST 16 ALT 26 Alkaline Phosphatase 36 L D Total Protein 6.6 Albumin 3.6 Globulin 3.0 Albumin/Globulin Ratio 1.2 Venous Blood Potassium Acetaminophen < 10.0 L Attending/Attestation - Attestation I have personally seen and examined this patient.: Yes I have fully participated in the care of the patient.: Yes I have reviewed all pertinent clinical information: Yes Notes (Text): 01/06/18 27 year old female with past medical history of depression who presents with acetaminophen overdose. Tylenol level is 47. LFTs within normal limits. She is started on NAC protocol. GI and ICU evaluations were appreciated. Will continue to monitor tylenol levels and LFTs. She also initially and nausea/vomiting likely secondary to above. Continue with protonix and zofran prn. Advance diet as tolerated. Continue with 1:1 observation. Psychiatry evaluation is requested. UA noted, however patient is asymptomatic. Family (parents) is at bedside and questions were answered. Melchor Francois MD Hospitalist.
[2018-01-06 19:55] LABS: VENOUS BLOOD GAS BASE EXCESS -1.6 mmol/L (0.0-2.0); VENOUS BLOOD GAS PO2 43 mm/Hg (30-55)
[2018-01-06 19:56] LABS: INR 1.17; PROTHROMBIN TIME 13.4 SECONDS (9.4-12.5)
[2018-01-07 00:07] LABS: VENOUS BLOOD GAS BASE EXCESS -0.6 mmol/L (0.0-2.0); VENOUS BLOOD GAS PO2 48 mm/Hg (30-55); VENOUS BLOOD PH 7.35 (7.32-7.43)
[2018-01-07] MEDS ORDERED: Pantoprazole 40 mg EC Tab PO SCH (06:00)
[2018-01-07 06:48] LABS: INR 1.28; PROTHROMBIN TIME 14.8 SECONDS (9.4-12.5)
[2018-01-07 06:50] LABS: BASO # 0.02 K/mm3 (0.0-2.0); BASO % 0.4 % (0.0-3.0); EOS # 0.1 (0.0-0.7); GRAN # 1.93 (1.4-6.5); GRAN % 37.8 % (50.0-68.0); HEMOGLOBIN 13.1 g/dL (12.0-16.0); LYMPH # 2.6 (1.2-3.4); LYMPH % 51.6 % (22.0-35.0); MEAN CELL VOLUME 86.8 fl (80.0-105.0); MEAN CORPUSCULAR HEMOGLOBIN 29.4 pg (25.0-35.0); MEAN CORPUSCULAR HGB CONC 33.9 g/dl (31.0-37.0); MEAN PLATELET VOLUME 9.8 fl (7.0-11.0); MONO # 0.5 (0.1-0.6); MONO % 9.2 % (1.0-6.0); RBC 4.46 10^6/uL (3.5-6.1); RED CELL DISTRIBUTION WIDTH 13.3 % (11.5-14.5); WHITE BLOOD COUNT 5.1 10^3/ul (4.5-11.0)
[2018-01-07] MEDS: Pantoprazole 40 mg EC Tab PO SCH (07:12)
[2018-01-07 07:21] LABS: ALB/GLOB RATIO 1.2 (1.1-1.8); ALBUMIN 3.6 g/dL (3.0-4.8); ALT/SGPT 26 U/L (7-56); AST/SGOT 16 U/L (14-36); BLOOD UREA NITROGEN 7 mg/dL (7-21); CALCIUM 9.1 mg/dL (8.4-10.5); GFR AFRICAN-AMERICAN > 60; GFR NON-AFRICAN AMERICAN > 60
[2018-01-07 07:59] VITALS: O2SAT 100
[2018-01-07 08:21] VITALS: BMI 25.7
--- NOTE | 2018-01-07 09:15 | CP.PCM.PN ---
Subjective - Date & Time of Evaluation Date of Evaluation: 01/07/18 Time of Evaluation: 08:00 - Subjective Subjective: GI Fellow PGY5 Progress Note Pt seen and evaluated at bedside, pt doing well and is AAOx3 in NAD. Pt reports some mild abdominal discomfort but no N/V. Bedside 1:1 sitter. ROS: A 12pt ROS was negative except as above Objective - Vital Signs/Intake and Output Vital Signs (last 24 hours): Temp Pulse Resp BP Pulse Ox 98 F 48 L 28 H 120/68 100 01/06/18 21:37 01/07/18 07:50 01/07/18 07:40 01/07/18 07:42 01/07/18 07:50 Intake and Output: 01/07/18 01/07/18 06:59 18:59 Intake Total 1115 Output Total 1200 Balance -85 - Medications Medications: Current Medications Acetylcysteine 6,577 mg/ (Dextrose) 1,032.885 mls @ 62.5 mls/hr IV .[id number] ONE Stop: 01/07/18 16:08 Last Admin: 01/07/18 00:00 Dose: 62.5 mls/hr Ondansetron HCl (Zofran Inj) 4 mg IVP Q4H PRN PRN Reason: Nausea/Vomiting Pantoprazole Sodium (Protonix Ec Tab) 40 mg PO 0600 VESNA Stop: 01/10/18 23:59 Last Admin: 01/07/18 07:12 Dose: 40 mg - Labs Labs: 01/07/18 05:30 01/07/18 05:30 PT 14.8 SECONDS (9.4-12.5) H 01/07/18 05:30 INR 1.28 01/07/18 05:30 APTT 31.7 Seconds (25.1-36.5) 01/06/18 14:40 - Constitutional Appears: Non-toxic, No Acute Distress - Head Exam Head Exam: ATRAUMATIC, NORMAL INSPECTION, NORMOCEPHALIC - Eye Exam Eye Exam: EOMI, Normal appearance, PERRL Pupil Exam: PERRL - ENT Exam ENT Exam: Mucous Membranes Moist - Neck Exam Neck Exam: Full ROM, Normal Inspection - Respiratory Exam Respiratory Exam: Clear to Ausculation Bilateral, NORMAL BREATHING PATTERN - Cardiovascular Exam Cardiovascular Exam: REGULAR RHYTHM, RRR, +S1, +S2 - GI/Abdominal Exam GI & Abdominal Exam: Soft, Tenderness, Normal Bowel Sounds. absent: Distended, Firm, Guarding, Rigid, Organomegaly - Rectal Exam Rectal Exam: Deferred - Extremities Exam Extremities Exam: Full ROM, Normal Inspection - Back Exam Back Exam: NORMAL INSPECTION - Neurological Exam Neurological Exam: Alert, Awake, Oriented x3 - Psychiatric Exam Psychiatric exam: Normal Affect, Normal Mood - Skin Skin Exam: Dry, Intact, Normal Color, Warm Assessment and Plan - Assessment and Plan (Free Text) Assessment: This is a 27 year old with PMH of depression presenting for acetaminophen overdose and suicidal ideation. 1. Acetaminophen overdose 2. Suicidal ideation Plan: -Continue supportive care -Acetaminophen level trending down to <10 from 47 -Continue NAC protocol treatment -Monitor liver function with LFTs and INR daily, INR slightly elevated to 1.28 today -Pt will need close followup for at least 24hrs -Monitor mental status -No plan for abdominal US at this time -Hepatitis panel negative -Psychiatric evaluation -Will follow pt closely The above H/P and A/P was discussed with Dr. Burnham who agrees with above mentioned plan of care.
[2018-01-07 12:18] LABS: HEPATITIS B SURFACE AG Negative (NEGATIVE)
[2018-01-07 12:24] LABS: HEPATITIS A IGM NEGATIVE (NEGATIVE); HEPATITIS B CORE AB NEGATIVE (NEGATIVE)
[2018-01-07 12:36] LABS: HEPATITIS C ANTIBODY NEGATIVE (NEGATIVE)
--- NOTE | 2018-01-07 12:59 | CP.CCUPN ---
<KishanZak hopkins - Last Filed: 01/07/18 12:59> CCU Subjective - Physician Review Events Since Last Encounter (Free Text): Zak Swain, PGY-1 ICU Progress Note Patient seen and examined at bedside this morning. No acute events overnight. Patient reports good appetite. Denies CP, SOB, abdominal pain, headaches, nausea , vomiting, diarrhea, urinary complaints and back pain. 12 point ROS noted here , otherwise unremarkable. CCU Objective - Vital Signs / Intake & Output Vital Signs (Last 4 hours): Vital Signs Pulse Resp BP Pulse Ox 01/07/18 12:00 59 L 20 120/68 100 01/07/18 11:50 60 24 97 01/07/18 11:40 64 46 H 100 01/07/18 11:30 53 L 16 100 01/07/18 11:20 54 L 19 100 01/07/18 11:10 51 L 40 H 100 01/07/18 11:00 54 L 17 115/50 L 100 01/07/18 10:50 58 L 19 100 01/07/18 10:40 48 L 18 100 01/07/18 10:30 51 L 15 100 01/07/18 10:20 55 L 15 100 01/07/18 10:10 52 L 14 100 01/07/18 10:02 53 L 15 112/66 100 01/07/18 10:00 63 28 H 95 01/07/18 09:50 66 31 H 01/07/18 09:40 69 50 H 91 L 01/07/18 09:30 65 46 H 87 L 01/07/18 09:20 74 46 H 98 01/07/18 09:10 60 20 100 01/07/18 09:00 56 L 18 143/80 100 Intake and Output (Last 8hrs): Intake & Output 01/06/18 01/07/18 01/07/18 22:59 06:59 14:59 Intake Total 1115 Output Total 1200 Balance -85 Weight 145 lb 145 lb Intake: IV 875 Left Antecubital 875 Oral 240 Output: Urine 1200 Urine, Voided 1200 Other: Voiding Method Bedside Commode # Bowel Movements 0 - Physical Exam Head: Positive for: Atraumatic, Normocephalic Pupils: Positive for: PERRL Extroacular Muscles: Positive for: EOMI Conjunctiva: Positive for: Normal Mouth: Positive for: Moist Mucous Membranes Neck: Positive for: Normal Range of Motion Respiratory/Chest: Positive for: Clear to Auscultation, Good Air Exchange. Negative for: Respiratory Distress, Accessory Muscle Use Cardiovascular: Positive for: Regular Rate and Rhythm, Normal S1, S2. Negative for: Murmurs Abdomen: Positive for: Other (mild epigastric noted on palpation). Negative for : Distention, Peritoneal Signs Back: Positive for: Normal Inspection Upper Extremity: Positive for: Normal Inspection. Negative for: Cyanosis, Edema Lower Extremity: Positive for: Normal Inspection. Negative for: Edema Neurological: Positive for: GCS=15, CN II-XII Intact, Speech Normal Skin: Positive for: Warm, Dry, Normal Color. Negative for: Rashes Psychiatric: Positive for: Alert, Oriented x 3, Depressed Mood, Other - Medications Active Medications: Active Medications Generic Name Dose Route Start Last Admin Trade Name Freq PRN Reason Stop Dose Admin Acetylcysteine 6,577 mg/ 1,032.885 mls @ 62.5 mls/hr 01/06/18 23:37 01/07/18 00:00 Dextrose IV 01/07/18 16:08 62.5 mls/hr .[id number] ONE Administration Ondansetron HCl 4 mg 01/06/18 18:04 Zofran Inj IVP Q4H PRN Nausea/Vomiting Pantoprazole Sodium 40 mg 01/07/18 06:00 01/07/18 07:12 Protonix Ec Tab PO 01/10/18 23:59 40 mg 0600 VESNA Administration - Patient Studies Lab Studies: Lab Studies 01/07/18 01/07/18 01/07/18 Range/Units 05:30 05:30 05:30 WBC (4.5-11.0) 10^3/ul RBC (3.5-6.1) 10^6/uL Hgb (12.0-16.0) g/dL Hct (36.0-48.0) % MCV (80.0-105.0) fl MCH (25.0-35.0) pg MCHC (31.0-37.0) g/dl RDW (11.5-14.5) % Plt Count (120.0-450.0) 10^3/uL MPV (7.0-11.0) fl Gran % (50.0-68.0) % Lymph % (Auto) (22.0-35.0) % [place] % (Auto) (1.0-6.0) % Eos % (Auto) (1.5-5.0) % Baso % (Auto) (0.0-3.0) % Gran # (1.4-6.5) Lymph # (Auto) (1.2-3.4) [place] # (Auto) (0.1-0.6) Eos # (Auto) (0.0-0.7) Baso # (Auto) (0.0-2.0) K/mm3 PT 14.8 H (9.4-12.5) SECONDS INR 1.28 pO2 (30-55) mm/Hg VBG pH (7.32-7.43) VBG pCO2 (40-60) VBG HCO3 (21-28) mmol/l VBG Total CO2 (22-28) mmol.L VBG O2 Sat (Calc) (40-65) % VBG Base Excess (0.0-2.0) mmol/L VBG Potassium (3.6-5.2) mmol/L Sodium 142 (132-148) mmol/L Chloride 107 (98-107) mmol/L Glucose (65-105) mg/dl Lactate (0.7-2.1) mmol/L FiO2 % Potassium 3.6 (3.6-5.0) mmol/L Carbon Dioxide 22 (21-33) mmol/L Anion Gap 16 (10-20) BUN 7 (7-21) mg/dL Creatinine 0.7 (0.7-1.2) mg/dl Est GFR ( Amer) > 60 Est GFR (Non-Af Amer) > 60 Random Glucose 80 (70-110) mg/dL Calcium 9.1 (8.4-10.5) mg/dL Total Bilirubin 0.4 (0.2-1.3) mg/dL AST 16 (14-36) U/L ALT 26 (7-56) U/L Alkaline Phosphatase 36 L D (38-126) U/L Total Protein 6.6 (5.8-8.3) g/dL Albumin 3.6 (3.0-4.8) g/dL Globulin 3.0 gm/dL Albumin/Globulin Ratio 1.2 (1.1-1.8) Venous Blood Potassium (3.6-5.2) mmol/L Acetaminophen < 10.0 L (10.0-20.0) ug/ml 01/07/18 01/06/18 01/06/18 Range/Units 05:30 23:48 23:48 WBC 5.1 D (4.5-11.0) 10^3/ul RBC 4.46 (3.5-6.1) 10^6/uL Hgb 13.1 (12.0-16.0) g/dL Hct 38.7 (36.0-48.0) % MCV 86.8 (80.0-105.0) fl MCH 29.4 (25.0-35.0) pg MCHC 33.9 (31.0-37.0) g/dl RDW 13.3 (11.5-14.5) % Plt Count 216 (120.0-450.0) 10^3/uL MPV 9.8 (7.0-11.0) fl Gran % 37.8 L (50.0-68.0) % Lymph % (Auto) 51.6 H (22.0-35.0) % [place] % (Auto) 9.2 H (1.0-6.0) % Eos % (Auto) 1.0 L (1.5-5.0) % Baso % (Auto) 0.4 (0.0-3.0) % Gran # 1.93 (1.4-6.5) Lymph # (Auto) 2.6 (1.2-3.4) [place] # (Auto) 0.5 (0.1-0.6) Eos # (Auto) 0.1 (0.0-0.7) Baso # (Auto) 0.02 (0.0-2.0) K/mm3 PT (9.4-12.5) SECONDS INR pO2 48 (30-55) mm/Hg VBG pH 7.35 (7.32-7.43) VBG pCO2 46.0 (40-60) VBG HCO3 25.4 (21-28) mmol/l VBG Total CO2 26.8 (22-28) mmol.L VBG O2 Sat (Calc) 87.2 H (40-65) % VBG Base Excess -0.6 L (0.0-2.0) mmol/L VBG Potassium 3.7 (3.6-5.2) mmol/L Sodium 140.0 (132-148) mmol/L Chloride 106.0 (98-107) mmol/L Glucose 96 (65-105) mg/dl Lactate 1.7 (0.7-2.1) mmol/L FiO2 21.0 % Potassium (3.6-5.0) mmol/L Carbon Dioxide (21-33) mmol/L Anion Gap (10-20) BUN (7-21) mg/dL Creatinine (0.7-1.2) mg/dl Est GFR ( Amer) Est GFR (Non-Af Amer) Random Glucose (70-110) mg/dL Calcium (8.4-10.5) mg/dL Total Bilirubin (0.2-1.3) mg/dL AST (14-36) U/L ALT (7-56) U/L Alkaline Phosphatase (38-126) U/L Total Protein (5.8-8.3) g/dL Albumin (3.0-4.8) g/dL Globulin gm/dL Albumin/Globulin Ratio (1.1-1.8) Venous Blood Potassium 3.7 (3.6-5.2) mmol/L Acetaminophen 12.0 (10.0-20.0) ug/ml 01/06/18 01/06/18 01/06/18 Range/Units 19:40 19:40 19:40 WBC (4.5-11.0) 10^3/ul RBC (3.5-6.1) 10^6/uL Hgb (12.0-16.0) g/dL Hct (36.0-48.0) % MCV (80.0-105.0) fl MCH (25.0-35.0) pg MCHC (31.0-37.0) g/dl RDW (11.5-14.5) % Plt Count (120.0-450.0) 10^3/uL MPV (7.0-11.0) fl Gran % (50.0-68.0) % Lymph % (Auto) (22.0-35.0) % [place] % (Auto) (1.0-6.0) % Eos % (Auto) (1.5-5.0) % Baso % (Auto) (0.0-3.0) % Gran # (1.4-6.5) Lymph # (Auto) (1.2-3.4) [place] # (Auto) (0.1-0.6) Eos # (Auto) (0.0-0.7) Baso # (Auto) (0.0-2.0) K/mm3 PT 13.4 H (9.4-12.5) SECONDS INR 1.17 pO2 43 (30-55) mm/Hg VBG pH 7.30 L (7.32-7.43) VBG pCO2 52.0 (40-60) VBG HCO3 25.6 (21-28) mmol/l VBG Total CO2 27.2 (22-28) mmol.L VBG O2 Sat (Calc) 78.2 H (40-65) % VBG Base Excess -1.6 L (0.0-2.0) mmol/L VBG Potassium 3.8 (3.6-5.2) mmol/L Sodium 141.0 (132-148) mmol/L Chloride 105.0 (98-107) mmol/L Glucose 109 H (65-105) mg/dl Lactate 2.1 (0.7-2.1) mmol/L FiO2 21.0 % Potassium (3.6-5.0) mmol/L Carbon Dioxide (21-33) mmol/L Anion Gap (10-20) BUN (7-21) mg/dL Creatinine (0.7-1.2) mg/dl Est GFR ( Amer) Est GFR (Non-Af Amer) Random Glucose (70-110) mg/dL Calcium (8.4-10.5) mg/dL Total Bilirubin (0.2-1.3) mg/dL AST (14-36) U/L ALT (7-56) U/L Alkaline Phosphatase (38-126) U/L Total Protein (5.8-8.3) g/dL Albumin (3.0-4.8) g/dL Globulin gm/dL Albumin/Globulin Ratio (1.1-1.8) Venous Blood Potassium 3.8 (3.6-5.2) mmol/L Acetaminophen 27.0 H (10.0-20.0) ug/ml Laboratory Results - last 24 hr 01/06/18 01/06/18 01/06/18 19:40 19:40 19:40 WBC RBC Hgb Hct MCV MCH MCHC RDW Plt Count MPV Gran % Lymph % (Auto) [place] % (Auto) Eos % (Auto) Baso % (Auto) Gran # Lymph # (Auto) [place] # (Auto) Eos # (Auto) Baso # (Auto) PT 13.4 H INR 1.17 pO2 43 VBG pH 7.30 L VBG pCO2 52.0 VBG HCO3 25.6 VBG Total CO2 27.2 VBG O2 Sat (Calc) 78.2 H VBG Base Excess -1.6 L VBG Potassium 3.8 Sodium 141.0 Chloride 105.0 Glucose 109 H Lactate 2.1 FiO2 21.0 Potassium Carbon Dioxide Anion Gap BUN Creatinine Est GFR ( Amer) Est GFR (Non-Af Amer) Random Glucose Calcium Total Bilirubin AST ALT Alkaline Phosphatase Total Protein Albumin Globulin Albumin/Globulin Ratio Venous Blood Potassium 3.8 Acetaminophen 27.0 H 01/06/18 01/06/18 01/07/18 23:48 23:48 05:30 WBC 5.1 D RBC 4.46 Hgb 13.1 Hct 38.7 MCV 86.8 MCH 29.4 MCHC 33.9 RDW 13.3 Plt Count 216 MPV 9.8 Gran % 37.8 L Lymph % (Auto) 51.6 H [place] % (Auto) 9.2 H Eos % (Auto) 1.0 L Baso % (Auto) 0.4 Gran # 1.93 Lymph # (Auto) 2.6 [place] # (Auto) 0.5 Eos # (Auto) 0.1 Baso # (Auto) 0.02 PT INR pO2 48 VBG pH 7.35 VBG pCO2 46.0 VBG HCO3 25.4 VBG Total CO2 26.8 VBG O2 Sat (Calc) 87.2 H VBG Base Excess -0.6 L VBG Potassium 3.7 Sodium 140.0 Chloride 106.0 Glucose 96 Lactate 1.7 FiO2 21.0 Potassium Carbon Dioxide Anion Gap BUN Creatinine Est GFR ( Amer) Est GFR (Non-Af Amer) Random Glucose Calcium Total Bilirubin AST ALT Alkaline Phosphatase Total Protein Albumin Globulin Albumin/Globulin Ratio Venous Blood Potassium 3.7 Acetaminophen 12.0 01/07/18 01/07/18 01/07/18 05:30 05:30 05:30 WBC RBC Hgb Hct MCV MCH MCHC RDW Plt Count MPV Gran % Lymph % (Auto) [place] % (Auto) Eos % (Auto) Baso % (Auto) Gran # Lymph # (Auto) [place] # (Auto) Eos # (Auto) Baso # (Auto) PT 14.8 H INR 1.28 pO2 VBG pH VBG pCO2 VBG HCO3 VBG Total CO2 VBG O2 Sat (Calc) VBG Base Excess VBG Potassium Sodium 142 Chloride 107 Glucose Lactate FiO2 Potassium 3.6 Carbon Dioxide 22 Anion Gap 16 BUN 7 Creatinine 0.7 Est GFR ( Amer) > 60 Est GFR (Non-Af Amer) > 60 Random Glucose 80 Calcium 9.1 Total Bilirubin 0.4 AST 16 ALT 26 Alkaline Phosphatase 36 L D Total Protein 6.6 Albumin 3.6 Globulin 3.0 Albumin/Globulin Ratio 1.2 Venous Blood Potassium Acetaminophen < 10.0 L Critical Care Progress Note - Nutrition Nutrition: Nutrition Category Date Time Status Altered GI/Hepatic Diet [DIET] Diets 01/07/18 Lunch Ordered Assessment/Plan - Assessment and Plan (Free Text) Assessment: This is a 27 year old with PMH of depression presenting to the ICU for management of acetominophen overdose on acetlycysteine drip. Trasnferred out of ICU today pending. Plan: Neuro: -maintain normothermia -AAO x3, moving extremities spontaneously past midline Psych: -anxious and guarded -psych on consult, Dr. Celaya -1:1 -GI: -LFT today AST/ALT WNL -acetopheniphen level <10, downtrend trend -follow up with poison control recommendations, currently on acetylcysteine drip -hepatitis panel is negative -GI on consult Cardio: -maintain MAP>65 -will monitor vitals including HR and BP closely Lungs: -SaO2 >90% -supplementary O2 PRN Renal: -maintain euvolemia -avoid nephrotoxic agents, hypochloremia -replace electrolytes as needed -BUN/Cr 7/0.7 WNL Heme: -Hg today is 13.1 WNL -PT/INR reveal 14.8/1.28 Endo: -maintain euglycemia ID: -WBC is today 5.1, afebrile -U/A revealed moderate leukocyte esterase, 20-25 WBC, many urine bacteria, patient is asymptomatic -Urine culture pending <Caroline Leong - Last Filed: 01/07/18 15:33> CCU Objective - Vital Signs / Intake & Output Vital Signs (Last 4 hours): Vital Signs Temp Pulse Resp BP Pulse Ox 01/07/18 14:00 98.2 F 74 18 101/52 L 100 01/07/18 12:00 98.4 F 59 L 20 120/68 100 01/07/18 11:50 60 24 97 01/07/18 11:40 64 46 H 100 Intake and Output (Last 8hrs): Intake & Output 01/07/18 01/07/18 01/07/18 06:59 14:59 22:59 Intake Total 1115 Output Total 1200 Balance -85 Weight 145 lb Intake: IV 875 Left Antecubital 875 Oral 240 Output: Urine 1200 Urine, Voided 1200 Other: # Bowel Movements 0 - Medications Active Medications: Active Medications Generic Name Dose Route Start Last Admin Trade Name Freq PRN Reason Stop Dose Admin Acetylcysteine 6,577 mg/ 1,032.885 mls @ 62.5 mls/hr 01/06/18 23:37 01/07/18 00:00 Dextrose IV 01/07/18 16:08 62.5 mls/hr .[id number] ONE Administration Ondansetron HCl 4 mg 01/06/18 18:04 Zofran Inj IVP Q4H PRN Nausea/Vomiting Pantoprazole Sodium 40 mg 01/07/18 06:00 01/07/18 07:12 Protonix Ec Tab PO 01/10/18 23:59 40 mg 0600 VESNA Administration - Patient Studies Lab Studies: Lab Studies 01/07/18 01/07/18 01/07/18 Range/Units 14:00 14:00 14:00 WBC 4.7 (4.5-11.0) 10^3/ul RBC 4.71 (3.5-6.1) 10^6/uL Hgb 13.9 (12.0-16.0) g/dL Hct 41.0 (36.0-48.0) % MCV 87.0 (80.0-105.0) fl MCH 29.5 (25.0-35.0) pg MCHC 33.9 (31.0-37.0) g/dl RDW 13.2 (11.5-14.5) % Plt Count 226 (120.0-450.0) 10^3/uL MPV 9.6 (7.0-11.0) fl Gran % 50.6 (50.0-68.0) % Lymph % (Auto) 38.4 H (22.0-35.0) % [place] % (Auto) 9.2 H (1.0-6.0) % Eos % (Auto) 0.9 L (1.5-5.0) % Baso % (Auto) 0.9 (0.0-3.0) % Gran # 2.36 (1.4-6.5) Lymph # (Auto) 1.8 (1.2-3.4) [place] # (Auto) 0.4 (0.1-0.6) Eos # (Auto) 0.0 (0.0-0.7) Baso # (Auto) 0.04 (0.0-2.0) K/mm3 PT 14.4 H (9.4-12.5) SECONDS INR 1.26 pO2 (30-55) mm/Hg VBG pH (7.32-7.43) VBG pCO2 (40-60) VBG HCO3 (21-28) mmol/l VBG Total CO2 (22-28) mmol.L VBG O2 Sat (Calc) (40-65) % VBG Base Excess (0.0-2.0) mmol/L VBG Potassium (3.6-5.2) mmol/L Sodium 145 (132-148) mmol/L Chloride 108 H (98-107) mmol/L Glucose (65-105) mg/dl Lactate (0.7-2.1) mmol/L FiO2 % Potassium 3.8 (3.6-5.0) mmol/L Carbon Dioxide 23 (21-33) mmol/L Anion Gap 19 (10-20) BUN 6 L (7-21) mg/dL Creatinine 0.7 (0.7-1.2) mg/dl Est GFR ( Amer) > 60 Est GFR (Non-Af Amer) > 60 Random Glucose 77 (70-110) mg/dL Calcium 9.5 (8.4-10.5) mg/dL Total Bilirubin 0.4 (0.2-1.3) mg/dL Direct Bilirubin 0.1 (0.0-0.4) mg/dL AST 16 (14-36) U/L ALT 15 (7-56) U/L Alkaline Phosphatase 39 (38-126) U/L Total Protein 7.2 (5.8-8.3) g/dL Albumin 4.0 (3.0-4.8) g/dL Globulin 3.2 gm/dL Albumin/Globulin Ratio 1.3 (1.1-1.8) Venous Blood Potassium (3.6-5.2) mmol/L Acetaminophen (10.0-20.0) ug/ml 01/07/18 01/07/18 01/07/18 Range/Units 14:00 05:30 05:30 WBC (4.5-11.0) 10^3/ul RBC (3.5-6.1) 10^6/uL Hgb (12.0-16.0) g/dL Hct (36.0-48.0) % MCV (80.0-105.0) fl MCH (25.0-35.0) pg MCHC (31.0-37.0) g/dl RDW (11.5-14.5) % Plt Count (120.0-450.0) 10^3/uL MPV (7.0-11.0) fl Gran % (50.0-68.0) % Lymph % (Auto) (22.0-35.0) % [place] % (Auto) (1.0-6.0) % Eos % (Auto) (1.5-5.0) % Baso % (Auto) (0.0-3.0) % Gran # (1.4-6.5) Lymph # (Auto) (1.2-3.4) [place] # (Auto) (0.1-0.6) Eos # (Auto) (0.0-0.7) Baso # (Auto) (0.0-2.0) K/mm3 PT (9.4-12.5) SECONDS INR pO2 (30-55) mm/Hg VBG pH (7.32-7.43) VBG pCO2 (40-60) VBG HCO3 (21-28) mmol/l VBG Total CO2 (22-28) mmol.L VBG O2 Sat (Calc) (40-65) % VBG Base Excess (0.0-2.0) mmol/L VBG Potassium (3.6-5.2) mmol/L Sodium 142 (132-148) mmol/L Chloride 107 (98-107) mmol/L Glucose (65-105) mg/dl Lactate (0.7-2.1) mmol/L FiO2 % Potassium 3.6 (3.6-5.0) mmol/L Carbon Dioxide 22 (21-33) mmol/L Anion Gap 16 (10-20) BUN 7 (7-21) mg/dL Creatinine 0.7 (0.7-1.2) mg/dl Est GFR ( Amer) > 60 Est GFR (Non-Af Amer) > 60 Random Glucose 80 (70-110) mg/dL Calcium 9.1 (8.4-10.5) mg/dL Total Bilirubin 0.4 (0.2-1.3) mg/dL Direct Bilirubin (0.0-0.4) mg/dL AST 16 (14-36) U/L ALT 26 (7-56) U/L Alkaline Phosphatase 36 L D (38-126) U/L Total Protein 6.6 (5.8-8.3) g/dL Albumin 3.6 (3.0-4.8) g/dL Globulin 3.0 gm/dL Albumin/Globulin Ratio 1.2 (1.1-1.8) Venous Blood Potassium (3.6-5.2) mmol/L Acetaminophen < 10.0 L < 10.0 L (10.0-20.0) ug/ml 01/07/18 01/07/18 01/06/18 Range/Units 05:30 05:30 23:48 WBC 5.1 D (4.5-11.0) 10^3/ul RBC 4.46 (3.5-6.1) 10^6/uL Hgb 13.1 (12.0-16.0) g/dL Hct 38.7 (36.0-48.0) % MCV 86.8 (80.0-105.0) fl MCH 29.4 (25.0-35.0) pg MCHC 33.9 (31.0-37.0) g/dl RDW 13.3 (11.5-14.5) % Plt Count 216 (120.0-450.0) 10^3/uL MPV 9.8 (7.0-11.0) fl Gran % 37.8 L (50.0-68.0) % Lymph % (Auto) 51.6 H (22.0-35.0) % [place] % (Auto) 9.2 H (1.0-6.0) % Eos % (Auto) 1.0 L (1.5-5.0) % Baso % (Auto) 0.4 (0.0-3.0) % Gran # 1.93 (1.4-6.5) Lymph # (Auto) 2.6 (1.2-3.4) [place] # (Auto) 0.5 (0.1-0.6) Eos # (Auto) 0.1 (0.0-0.7) Baso # (Auto) 0.02 (0.0-2.0) K/mm3 PT 14.8 H (9.4-12.5) SECONDS INR 1.28 pO2 (30-55) mm/Hg VBG pH (7.32-7.43) VBG pCO2 (40-60) VBG HCO3 (21-28) mmol/l VBG Total CO2 (22-28) mmol.L VBG O2 Sat (Calc) (40-65) % VBG Base Excess (0.0-2.0) mmol/L VBG Potassium (3.6-5.2) mmol/L Sodium (132-148) mmol/L Chloride (98-107) mmol/L Glucose (65-105) mg/dl Lactate (0.7-2.1) mmol/L FiO2 % Potassium (3.6-5.0) mmol/L Carbon Dioxide (21-33) mmol/L Anion Gap (10-20) BUN (7-21) mg/dL Creatinine (0.7-1.2) mg/dl Est GFR ( Amer) Est GFR (Non-Af Amer) Random Glucose (70-110) mg/dL Calcium (8.4-10.5) mg/dL Total Bilirubin (0.2-1.3) mg/dL Direct Bilirubin (0.0-0.4) mg/dL AST (14-36) U/L ALT (7-56) U/L Alkaline Phosphatase (38-126) U/L Total Protein (5.8-8.3) g/dL Albumin (3.0-4.8) g/dL Globulin gm/dL Albumin/Globulin Ratio (1.1-1.8) Venous Blood Potassium (3.6-5.2) mmol/L Acetaminophen 12.0 (10.0-20.0) ug/ml 01/06/18 01/06/18 01/06/18 Range/Units 23:48 19:40 19:40 WBC (4.5-11.0) 10^3/ul RBC (3.5-6.1) 10^6/uL Hgb (12.0-16.0) g/dL Hct (36.0-48.0) % MCV (80.0-105.0) fl MCH (25.0-35.0) pg MCHC (31.0-37.0) g/dl RDW (11.5-14.5) % Plt Count (120.0-450.0) 10^3/uL MPV (7.0-11.0) fl Gran % (50.0-68.0) % Lymph % (Auto) (22.0-35.0) % [place] % (Auto) (1.0-6.0) % Eos % (Auto) (1.5-5.0) % Baso % (Auto) (0.0-3.0) % Gran # (1.4-6.5) Lymph # (Auto) (1.2-3.4) [place] # (Auto) (0.1-0.6) Eos # (Auto) (0.0-0.7) Baso # (Auto) (0.0-2.0) K/mm3 PT (9.4-12.5) SECONDS INR pO2 48 43 (30-55) mm/Hg VBG pH 7.35 7.30 L (7.32-7.43) VBG pCO2 46.0 52.0 (40-60) VBG HCO3 25.4 25.6 (21-28) mmol/l VBG Total CO2 26.8 27.2 (22-28) mmol.L VBG O2 Sat (Calc) 87.2 H 78.2 H (40-65) % VBG Base Excess -0.6 L -1.6 L (0.0-2.0) mmol/L VBG Potassium 3.7 3.8 (3.6-5.2) mmol/L Sodium 140.0 141.0 (132-148) mmol/L Chloride 106.0 105.0 (98-107) mmol/L Glucose 96 109 H (65-105) mg/dl Lactate 1.7 2.1 (0.7-2.1) mmol/L FiO2 21.0 21.0 % Potassium (3.6-5.0) mmol/L Carbon Dioxide (21-33) mmol/L Anion Gap (10-20) BUN (7-21) mg/dL Creatinine (0.7-1.2) mg/dl Est GFR ( Amer) Est GFR (Non-Af Amer) Random Glucose (70-110) mg/dL Calcium (8.4-10.5) mg/dL Total Bilirubin (0.2-1.3) mg/dL Direct Bilirubin (0.0-0.4) mg/dL AST (14-36) U/L ALT (7-56) U/L Alkaline Phosphatase (38-126) U/L Total Protein (5.8-8.3) g/dL Albumin (3.0-4.8) g/dL Globulin gm/dL Albumin/Globulin Ratio (1.1-1.8) Venous Blood Potassium 3.7 3.8 (3.6-5.2) mmol/L Acetaminophen 27.0 H (10.0-20.0) ug/ml 01/06/18 Range/Units 19:40 WBC (4.5-11.0) 10^3/ul RBC (3.5-6.1) 10^6/uL Hgb (12.0-16.0) g/dL Hct (36.0-48.0) % MCV (80.0-105.0) fl MCH (25.0-35.0) pg MCHC (31.0-37.0) g/dl RDW (11.5-14.5) % Plt Count (120.0-450.0) 10^3/uL MPV (7.0-11.0) fl Gran % (50.0-68.0) % Lymph % (Auto) (22.0-35.0) % [place] % (Auto) (1.0-6.0) % Eos % (Auto) (1.5-5.0) % Baso % (Auto) (0.0-3.0) % Gran # (1.4-6.5) Lymph # (Auto) (1.2-3.4) [place] # (Auto) (0.1-0.6) Eos # (Auto) (0.0-0.7) Baso # (Auto) (0.0-2.0) K/mm3 PT 13.4 H (9.4-12.5) SECONDS INR 1.17 pO2 (30-55) mm/Hg VBG pH (7.32-7.43) VBG pCO2 (40-60) VBG HCO3 (21-28) mmol/l VBG Total CO2 (22-28) mmol.L VBG O2 Sat (Calc) (40-65) % VBG Base Excess (0.0-2.0) mmol/L VBG Potassium (3.6-5.2) mmol/L Sodium (132-148) mmol/L Chloride (98-107) mmol/L Glucose (65-105) mg/dl Lactate (0.7-2.1) mmol/L FiO2 % Potassium (3.6-5.0) mmol/L Carbon Dioxide (21-33) mmol/L Anion Gap (10-20) BUN (7-21) mg/dL Creatinine (0.7-1.2) mg/dl Est GFR ( Amer) Est GFR (Non-Af Amer) Random Glucose (70-110) mg/dL Calcium (8.4-10.5) mg/dL Total Bilirubin (0.2-1.3) mg/dL Direct Bilirubin (0.0-0.4) mg/dL AST (14-36) U/L ALT (7-56) U/L Alkaline Phosphatase (38-126) U/L Total Protein (5.8-8.3) g/dL Albumin (3.0-4.8) g/dL Globulin gm/dL Albumin/Globulin Ratio (1.1-1.8) Venous Blood Potassium (3.6-5.2) mmol/L Acetaminophen (10.0-20.0) ug/ml Laboratory Results - last 24 hr 01/06/18 01/06/18 01/06/18 19:40 19:40 19:40 WBC RBC Hgb Hct MCV MCH MCHC RDW Plt Count MPV Gran % Lymph % (Auto) [place] % (Auto) Eos % (Auto) Baso % (Auto) Gran # Lymph # (Auto) [place] # (Auto) Eos # (Auto) Baso # (Auto) PT 13.4 H INR 1.17 pO2 43 VBG pH 7.30 L VBG pCO2 52.0 VBG HCO3 25.6 VBG Total CO2 27.2 VBG O2 Sat (Calc) 78.2 H VBG Base Excess -1.6 L VBG Potassium 3.8 Sodium 141.0 Chloride 105.0 Glucose 109 H Lactate 2.1 FiO2 21.0 Potassium Carbon Dioxide Anion Gap BUN Creatinine Est GFR ( Amer) Est GFR (Non-Af Amer) Random Glucose Calcium Total Bilirubin Direct Bilirubin AST ALT Alkaline Phosphatase Total Protein Albumin Globulin Albumin/Globulin Ratio Venous Blood Potassium 3.8 Acetaminophen 27.0 H 01/06/18 01/06/18 01/07/18 23:48 23:48 05:30 WBC 5.1 D RBC 4.46 Hgb 13.1 Hct 38.7 MCV 86.8 MCH 29.4 MCHC 33.9 RDW 13.3 Plt Count 216 MPV 9.8 Gran % 37.8 L Lymph % (Auto) 51.6 H [place] % (Auto) 9.2 H Eos % (Auto) 1.0 L Baso % (Auto) 0.4 Gran # 1.93 Lymph # (Auto) 2.6 [place] # (Auto) 0.5 Eos # (Auto) 0.1 Baso # (Auto) 0.02 PT INR pO2 48 VBG pH 7.35 VBG pCO2 46.0 VBG HCO3 25.4 VBG Total CO2 26.8 VBG O2 Sat (Calc) 87.2 H VBG Base Excess -0.6 L VBG Potassium 3.7 Sodium 140.0 Chloride 106.0 Glucose 96 Lactate 1.7 FiO2 21.0 Potassium Carbon Dioxide Anion Gap BUN Creatinine Est GFR ( Amer) Est GFR (Non-Af Amer) Random Glucose Calcium Total Bilirubin Direct Bilirubin AST ALT Alkaline Phosphatase Total Protein Albumin Globulin Albumin/Globulin Ratio Venous Blood Potassium 3.7 Acetaminophen 12.0 01/07/18 01/07/18 01/07/18 05:30 05:30 05:30 WBC RBC Hgb Hct MCV MCH MCHC RDW Plt Count MPV Gran % Lymph % (Auto) [place] % (Auto) Eos % (Auto) Baso % (Auto) Gran # Lymph # (Auto) [place] # (Auto) Eos # (Auto) Baso # (Auto) PT 14.8 H INR 1.28 pO2 VBG pH VBG pCO2 VBG HCO3 VBG Total CO2 VBG O2 Sat (Calc) VBG Base Excess VBG Potassium Sodium 142 Chloride 107 Glucose Lactate FiO2 Potassium 3.6 Carbon Dioxide 22 Anion Gap 16 BUN 7 Creatinine 0.7 Est GFR ( Amer) > 60 Est GFR (Non-Af Amer) > 60 Random Glucose 80 Calcium 9.1 Total Bilirubin 0.4 Direct Bilirubin AST 16 ALT 26 Alkaline Phosphatase 36 L D Total Protein 6.6 Albumin 3.6 Globulin 3.0 Albumin/Globulin Ratio 1.2 Venous Blood Potassium Acetaminophen < 10.0 L 01/07/18 01/07/18 01/07/18 14:00 14:00 14:00 WBC 4.7 RBC 4.71 Hgb 13.9 Hct 41.0 MCV 87.0 MCH 29.5 MCHC 33.9 RDW 13.2 Plt Count 226 MPV 9.6 Gran % 50.6 Lymph % (Auto) 38.4 H [place] % (Auto) 9.2 H Eos % (Auto) 0.9 L Baso % (Auto) 0.9 Gran # 2.36 Lymph # (Auto) 1.8 [place] # (Auto) 0.4 Eos # (Auto) 0.0 Baso # (Auto) 0.04 PT 14.4 H INR 1.26 pO2 VBG pH VBG pCO2 VBG HCO3 VBG Total CO2 VBG O2 Sat (Calc) VBG Base Excess VBG Potassium Sodium Chloride Glucose Lactate FiO2 Potassium Carbon Dioxide Anion Gap BUN Creatinine Est GFR ( Amer) Est GFR (Non-Af Amer) Random Glucose Calcium Total Bilirubin Direct Bilirubin AST ALT Alkaline Phosphatase Total Protein Albumin Globulin Albumin/Globulin Ratio Venous Blood Potassium Acetaminophen < 10.0 L 01/07/18 14:00 WBC RBC Hgb Hct MCV MCH MCHC RDW Plt Count MPV Gran % Lymph % (Auto) [place] % (Auto) Eos % (Auto) Baso % (Auto) Gran # Lymph # (Auto) [place] # (Auto) Eos # (Auto) Baso # (Auto) PT INR pO2 VBG pH VBG pCO2 VBG HCO3 VBG Total CO2 VBG O2 Sat (Calc) VBG Base Excess VBG Potassium Sodium 145 Chloride 108 H Glucose Lactate FiO2 Potassium 3.8 Carbon Dioxide 23 Anion Gap 19 BUN 6 L Creatinine 0.7 Est GFR ( Amer) > 60 Est GFR (Non-Af Amer) > 60 Random Glucose 77 Calcium 9.5 Total Bilirubin 0.4 Direct Bilirubin 0.1 AST 16 ALT 15 Alkaline Phosphatase 39 Total Protein 7.2 Albumin 4.0 Globulin 3.2 Albumin/Globulin Ratio 1.3 Venous Blood Potassium Acetaminophen Critical Care Progress Note - Nutrition Nutrition: Nutrition Category Date Time Status Altered GI/Hepatic Diet [DIET] Diets 01/07/18 Lunch Ordered Addendum Addendum: 01/07/18 15:31 ICU Attending Addendum: Patient seen and examined. Case reviewed on round with housestaff. Agree with resident note above with the following additions/exceptions: 27F with depression admitted after ingesting large amount of tylenol; Tylenol has cleared, cont to trend LFTs and INR. Cont NAC. F/u GI rec. 1:1 suicide watch Psych consult otherwise stable from a MICU perspective ok to transfer Rest of care as noted above. Caroline Leong MD Selling Manager ----
[2018-01-07 14:14] LABS: BASO # 0.04 K/mm3 (0.0-2.0); BASO % 0.9 % (0.0-3.0); EOS % 0.9 % (1.5-5.0); GRAN # 2.36 (1.4-6.5); GRAN % 50.6 % (50.0-68.0); HEMOGLOBIN 13.9 g/dL (12.0-16.0); LYMPH # 1.8 (1.2-3.4); LYMPH % 38.4 % (22.0-35.0); MEAN CORPUSCULAR HEMOGLOBIN 29.5 pg (25.0-35.0); MEAN CORPUSCULAR HGB CONC 33.9 g/dl (31.0-37.0); MEAN PLATELET VOLUME 9.6 fl (7.0-11.0); MONO # 0.4 (0.1-0.6); MONO % 9.2 % (1.0-6.0); RBC 4.71 10^6/uL (3.5-6.1); RED CELL DISTRIBUTION WIDTH 13.2 % (11.5-14.5); WHITE BLOOD COUNT 4.7 10^3/ul (4.5-11.0)
[2018-01-07 14:21] LABS: ALB/GLOB RATIO 1.3 (1.1-1.8); ALT/SGPT 15 U/L (7-56); AST/SGOT 16 U/L (14-36); BILIRUBIN,DIRECT 0.1 mg/dL (0.0-0.4); BLOOD UREA NITROGEN 6 mg/dL (7-21); CALCIUM 9.5 mg/dL (8.4-10.5); GFR AFRICAN-AMERICAN > 60; GFR NON-AFRICAN AMERICAN > 60
[2018-01-07 14:30] LABS: INR 1.26; PROTHROMBIN TIME 14.4 SECONDS (9.4-12.5)
--- NOTE | 2018-01-07 15:17 | CP.PCM.PN ---
<Dustin Malave - Last Filed: 01/07/18 15:06> Subjective - Date & Time of Evaluation Date of Evaluation: 01/07/18 Time of Evaluation: 09:15 - Subjective Subjective: PGY-[address] Francois 27 F w PMHx depression presenting yesterday evening s/p acetaminophen overdose. Patient seen and examined at bedside. She is still in the ICU s/p acetaminophen overdose last night. Sitter is at bedside. No acute events overnight. She denies any chills, nausea, vomiting, or abdominal pain since she presented last night. She is in good spirits and denies any suicidal ideation at this time. Objective - Vital Signs/Intake and Output Vital Signs (last 24 hours): Temp Pulse Resp BP Pulse Ox 98.2 F 74 18 101/52 L 100 01/07/18 14:00 01/07/18 14:00 01/07/18 14:00 01/07/18 14:00 01/07/18 14:00 Intake and Output: 01/07/18 01/07/18 06:59 18:59 Intake Total 1115 Output Total 1200 Balance -85 - Medications Medications: Current Medications Acetylcysteine 6,577 mg/ (Dextrose) 1,032.885 mls @ 62.5 mls/hr IV .[id number] ONE Stop: 01/07/18 16:08 Last Admin: 01/07/18 00:00 Dose: 62.5 mls/hr Ondansetron HCl (Zofran Inj) 4 mg IVP Q4H PRN PRN Reason: Nausea/Vomiting Pantoprazole Sodium (Protonix Ec Tab) 40 mg PO 0600 VESNA Stop: 01/10/18 23:59 Last Admin: 01/07/18 07:12 Dose: 40 mg - Labs Labs: 01/07/18 14:00 01/07/18 14:00 PT 14.4 SECONDS (9.4-12.5) H 01/07/18 14:00 INR 1.26 01/07/18 14:00 APTT 31.7 Seconds (25.1-36.5) 01/06/18 14:40 - Additional Findings Additional findings: - Constitutional Appears: No Acute Distress, appears well Additional comments: - Head Exam Head Exam: ATRAUMATIC, NORMAL INSPECTION - Eye Exam Eye Exam: Normal appearance, PERRL - ENT Exam ENT Exam: Mucous Membranes Moist - Neck Exam Neck exam: Positive for: Normal Inspection - Respiratory Exam Respiratory Exam: Clear to Auscultation Bilateral. absent: Rales, Rhonchi, Wheezes - Cardiovascular Exam Cardiovascular Exam: REGULAR RHYTHM, +S1, +S2. absent: Gallop, Rubs, Systolic Murmur - GI/Abdominal Exam GI & Abdominal Exam: Normal Bowel Sounds, Soft, no Tenderness, non-distended Additional comments: - Extremities Exam Additional comments: no tremors present today - Neurological Exam Neurological exam: Alert - Psychiatric Exam Psychiatric exam: normal mood, normal affect, pleasant Additional comments: - Skin Skin Exam: Dry, Intact, Warm Assessment and Plan - Assessment and Plan (Free Text) Assessment: Patient is a 27 y.o female with PMH of depression presenting to the ED with intentional acetaminophen overdose. Poison control was contacted and she was started on 16 hour protocol of NAC in ED: Plan: Acetaminophen overdose: - Poison control was contacted and she was started on NAC - Serum acetaminophen level: 47 -> 27 -> 12 -> <10 - LFT's are normal on admission: AST: 20, ALT: 21, will continue to monitor - Monitor LFT's daily, INR daily, Acetaminophen levels Q6 - Hepatitis panel negative - Patient is admitted to ICU - G.I consulted, Dr. Tovar * close f/u for additional 24 hours, check LFTs/INR daily, no abdominal imaging necessary at this time - Psych consulted, Dr. Celaya - Patient is 1:1 due to suicidal ideation - Zofran 4mg IV Q4H PRN - Advanced to soft diet today Asymptomatic UTI - WBC is today 6.6, afebrile, asymptomatic - U/A revealed moderate leukocyte esterase, 20-25 WBC, many urine bacteria - Urine culture pending - STD testing including chlamydia/GC, rapid HIV, RPR as patient recently had unprotected sexual contact GI/DVT prophylaxis: Protonix and SCD's <Melchor Francois - Last Filed: 01/07/18 15:54> Objective - Vital Signs/Intake and Output Vital Signs (last 24 hours): Temp Pulse Resp BP Pulse Ox 98.2 F 74 18 101/52 L 100 01/07/18 14:00 01/07/18 14:00 01/07/18 14:00 01/07/18 14:00 01/07/18 14:00 Intake and Output: 01/07/18 01/07/18 06:59 18:59 Intake Total 1115 Output Total 1200 Balance -85 - Medications Medications: Current Medications Acetylcysteine 6,577 mg/ (Dextrose) 1,032.885 mls @ 62.5 mls/hr IV .[id number] ONE Stop: 01/07/18 16:08 Last Admin: 01/07/18 00:00 Dose: 62.5 mls/hr Ondansetron HCl (Zofran Inj) 4 mg IVP Q4H PRN PRN Reason: Nausea/Vomiting Pantoprazole Sodium (Protonix Ec Tab) 40 mg PO 0600 VESNA Stop: 01/10/18 23:59 Last Admin: 01/07/18 07:12 Dose: 40 mg - Labs Labs: 01/07/18 14:00 01/07/18 14:00 PT 14.4 SECONDS (9.4-12.5) H 01/07/18 14:00 INR 1.26 01/07/18 14:00 APTT 31.7 Seconds (25.1-36.5) 01/06/18 14:40 Attending/Attestation - Attestation I have personally seen and examined this patient.: Yes I have fully participated in the care of the patient.: Yes I have reviewed all pertinent clinical information, including history, physical exam and plan: Yes Notes (Text): 01/07/18 15:39 27 year old female with past medical history of depression who presented with acetaminophen overdose. Tylenol level was 47. Patient was started on NAC treatment. Tylenol level has come down <10. LFTs remain within normal limits. GI is following the patient. Her nausea/vomiting has resolved. Diet is advanced. Continue with 1:1 observation. Psychiatry evaluation is pending. UA noted, however patient is asymptomatic. Possible downgrade from ICU today. Melchor Francois MD Hospitalist.
--- NOTE | 2018-01-08 00:08 | CON ---
Copied To: Shayla Celaya MD Attending MD: Shayla Celaya DATE: 01/07/2018 HISTORY OF PRESENT ILLNESS: The patient is a single 27-year-old female with a history of depression and anxiety, no history of suicide attempt or psychiatric hospitalization or medication trial, who was brought in by her mother after she received a call from her daughter while she was at work. Daughter had told mother that she was having suicidal thoughts. Thereafter, mother rushed home and found patient vomiting and took her to the emergency room. Psychiatry was consulted for possible suicide attempt via overdose on Tylenol. I met with patient at bedside and she appears quite calm and goal directed and consistent and well oriented to current circumstances as well as location, month, and year. The patient has denied being overly depressed actually at the time of the ingestion of the Tylenol. She indicated that she was quite overwhelmed and she was also in pain and she has a tendency to take Tylenol when she is in pain and she has a tendency to take a lot of Tylenol when she is in pain up to 12 to 16 tablets a day when she has her menstrual cycle. The patient indicates that she is currently having menstrual cycle and she has also been undergoing a lot of stressors right now. She has been worried about her medical health as she has not been feeling well for the last couple of weeks and she has wanted to see an auto rental clerk to check out her symptoms; however, recently learned that her health insurance will not cover this type of visit even though she had called the health insurance company to confirm that this would be covered when she initially enrolled. The patient has wanted to know what is wrong with her and she worries that she might have caught a sexually-transmitted disease because of a sexual encounter, in which she showed bad judgment and she has been worried about that and very frustrated with her own poor judgment as well as the duplicity by her health insurance company, which I do not doubt for a minute. In addition, the patient recently learned that she missed the opportunity at her dream job at [employer] because the email from her management recruiter went to her [employer] account instead of her regular inbox and this is because of a shift in outlook from her current postgraduate school. The patient was very upset and frustrated with this because she went to multiple interviews and has really wanted the job and assumed that she was disqualified, but upon reviewing her [employer] folder on the day of overdose, she noticed that the management recruiter has attempted to reach her numerous times and told her that she had a followup interview. Apparently, the patient missed the opportunity of getting this job because it was given to somebody else because of this oversight. All of this led to the patient being very overwhelmed and she took extra Tylenol to calm herself down as she did not have any p.r.n. for this purpose for anxiety and this has generally worked for her in the past when she had physical pain and she was not aware of the dangers of Tylenol overdose as she assumed it was associated with much larger quantity. Nonetheless, she does admit that she was depressed and she had suicidal thoughts, but she denied ever wanting to . What she does admit is that she has poor coping. The patient presents as earnest and she does not appear to be in acute danger to herself and showed some remorse for her decision making at the time of her overdose. The patient is future-oriented. She had a bad day yesterday; however, she indicates that she has regrouped and she is carrying forward. She requests that medical team follow up on possible STDs while she is here that she can make the most out of this hospitalization while her Tylenol levels decrease. This will also in turn alleviate some of her anxiety levels. The patient also showed me an email that she sent to the insurance company, in which she terminated health insurance with them and asked for a refund as they misrepresented the coverage that she was supposed to get. This was written the day prior during the day of her overdose. So it seems to confirm the fact that she was not actually trying to kill herself as this was a future-oriented thing to do. The patient also called up [employer] and arranged for [employer] to reimburse her for all those months of paying for health coverage. [employer] also indicated that they would try to help her to find health insurance as well. In this case, patient appears to be resourceful and organizing her life so that it improves. She is ashamed about what happened; however, she is not suicidal, she is not homicidal, and she is showing appropriate decision making at this time and an appropriate level of insight regarding nature of circumstances contributing to her presentation yesterday. Her insight and judgment considered to be fair at this time. Vitals were reviewed as well as labs and patient's acetaminophen has lowered from 47 yesterday to less than 10 today. Her UDS as predicted is negative as she denied having any drug or alcohol issues. Hepatitis levels are negative, which is great. The patient is not on any current psychiatric medications. PSYCHIATRIC HISTORY: The patient indicates that she did see a psychiatry doctor years ago for a period of 6-7 months every Saturday for therapy. She was not given any psychiatric medications at that time and she had been depressed over a breakup. She denies any prior suicidal attempts or psychiatric hospitalizations from the chart. SOCIAL HISTORY: Patient was born in [place], lived in [place] until she was 11 years old and then returned back to [place]. She is single. She has no children. She lives with her mother. 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 She currently attends graduate school and has few more classes until she gets a masters in financial engineering. She denies any drug or alcohol problems or tobacco use and UDS confirms this. IMPRESSION: Adjustment disorder with depression and anxiety. RECOMMENDATIONS: At this time, patient does not require one-to-one as she does not appear to be in acute danger to herself and she is future oriented. I do not believe that patient requires psychiatric inpatient hospitalization, a recourse that I generally recommend; however, the patient does present with very strong predictive factors for improvement and success regarding recovery from this overdose. She has a supportive family. She is educated. 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 I am inclined to psychiatrically clear her provided that her mother is in agreement and feels safe. Regarding this particular recommendation of mariela, which is not a common recommendation of mariela, but at this point, I am considering it. I did leave a voice mail for patient's mother at [phone] so that I can obtain collateral and discuss psychiatric clearance at this time. That is my return number and I am currently awaiting a phone call back. I will continue to follow up with patient tomorrow on Saturday01/08/2018. Shayla Celaya MD [facility] # [phone]
[2018-01-08] MEDS: Pantoprazole 40 mg EC Tab PO SCH (05:51)
[2018-01-08 07:12] LABS: BASO # 0.04 K/mm3 (0.0-2.0); BASO % 0.8 % (0.0-3.0); EOS # 0.1 (0.0-0.7); EOS % 1.8 % (1.5-5.0); GRAN # 2.83 (1.4-6.5); GRAN % 55.6 % (50.0-68.0); HEMOGLOBIN 13.7 g/dL (12.0-16.0); LYMPH # 1.7 (1.2-3.4); LYMPH % 32.4 % (22.0-35.0); MEAN CELL VOLUME 87.9 fl (80.0-105.0); MEAN CORPUSCULAR HEMOGLOBIN 29.6 pg (25.0-35.0); MEAN CORPUSCULAR HGB CONC 33.7 g/dl (31.0-37.0); MEAN PLATELET VOLUME 9.9 fl (7.0-11.0); MONO # 0.5 (0.1-0.6); MONO % 9.4 % (1.0-6.0); RBC 4.63 10^6/uL (3.5-6.1); RED CELL DISTRIBUTION WIDTH 13.4 % (11.5-14.5); WHITE BLOOD COUNT 5.1 10^3/ul (4.5-11.0)
[2018-01-08 07:21] LABS: INR 1.09; PROTHROMBIN TIME 12.6 SECONDS (9.4-12.5)
[2018-01-08 07:37] LABS: ALB/GLOB RATIO 1.2 (1.1-1.8); ALBUMIN 3.6 g/dL (3.0-4.8); ALT/SGPT 19 U/L (7-56); AST/SGOT 22 U/L (14-36); BLOOD UREA NITROGEN 14 mg/dL (7-21); CALCIUM 9.1 mg/dL (8.4-10.5); GFR AFRICAN-AMERICAN > 60; GFR NON-AFRICAN AMERICAN > 60
--- NOTE | 2018-01-08 08:47 | CP.PCM.PN ---
<Lorelei Chowdhury - Last Filed: 01/08/18 08:47> Subjective - Date & Time of Evaluation Date of Evaluation: 01/08/18 Time of Evaluation: 08:00 - Subjective Subjective: GI Fellow PGY5 Progress Note Pt seen and evaluated at bedside, pt doing well and is AAOx3 in NAD. Pt reports no abdominal discomfort, no N/V. Tolerating diet. Bedside 1:1 sitter. ROS: A 12pt ROS was negative except as above Objective - Vital Signs/Intake and Output Vital Signs (last 24 hours): Temp Pulse Resp BP Pulse Ox 98 F 56 L 20 104/57 L 100 01/08/18 06:00 01/08/18 06:00 01/08/18 06:00 01/08/18 06:00 01/08/18 06:00 Intake and Output: 01/08/18 01/08/18 06:59 18:59 Intake Total 1440 240 Balance 1440 240 - Medications Medications: Current Medications Ondansetron HCl (Zofran Inj) 4 mg IVP Q4H PRN PRN Reason: Nausea/Vomiting Pantoprazole Sodium (Protonix Ec Tab) 40 mg PO 0600 VESNA Stop: 01/10/18 23:59 Last Admin: 01/08/18 05:51 Dose: 40 mg - Labs Labs: 01/08/18 06:45 01/08/18 06:45 PT 12.6 SECONDS (9.4-12.5) H 01/08/18 06:45 INR 1.09 01/08/18 06:45 APTT 31.7 Seconds (25.1-36.5) 01/06/18 14:40 - Constitutional Appears: Non-toxic, No Acute Distress - Head Exam Head Exam: ATRAUMATIC, NORMAL INSPECTION, NORMOCEPHALIC - Eye Exam Eye Exam: EOMI, Normal appearance, PERRL Pupil Exam: PERRL - ENT Exam ENT Exam: Mucous Membranes Moist, Normal Exam - Neck Exam Neck Exam: Full ROM, Normal Inspection - Respiratory Exam Respiratory Exam: Clear to Ausculation Bilateral, NORMAL BREATHING PATTERN - Cardiovascular Exam Cardiovascular Exam: REGULAR RHYTHM, RRR, +S1, +S2 - GI/Abdominal Exam GI & Abdominal Exam: Soft, Normal Bowel Sounds. absent: Distended, Firm, Rigid , Tenderness, Organomegaly - Rectal Exam Rectal Exam: Deferred - Extremities Exam Extremities Exam: Full ROM, Normal Inspection - Neurological Exam Neurological Exam: Alert, Awake, Oriented x3 - Psychiatric Exam Psychiatric exam: Normal Affect, Normal Mood - Skin Skin Exam: Dry, Intact, Normal Color, Warm Assessment and Plan - Assessment and Plan (Free Text) Assessment: This is a 27 year old with PMH of depression presenting for acetaminophen overdose and suicidal ideation. 1. Acetaminophen overdose 2. Suicidal ideation Plan: -Continue supportive care -Acetaminophen level normal -Completed NAC protocol treatment -LFTs and INR wnl -Pt clinically improved -Hepatitis panel negative -Psychiatric evaluation -Discussed with pt about acetaminophen overdose and toxicity -Please call with any questions or concerns <Rich Burnham - Last Filed: 01/08/18 12:30> Objective - Vital Signs/Intake and Output Vital Signs (last 24 hours): Temp Pulse Resp BP Pulse Ox 98 F 56 L 20 104/57 L 100 01/08/18 06:00 01/08/18 06:00 01/08/18 06:00 01/08/18 06:00 01/08/18 06:00 Intake and Output: 01/08/18 01/08/18 06:59 18:59 Intake Total 1440 240 Balance 1440 240 - Medications Medications: Current Medications Ondansetron HCl (Zofran Inj) 4 mg IVP Q4H PRN PRN Reason: Nausea/Vomiting Pantoprazole Sodium (Protonix Ec Tab) 40 mg PO 0600 VESNA Stop: 01/10/18 23:59 Last Admin: 01/08/18 05:51 Dose: 40 mg - Labs Labs: 01/08/18 06:45 01/08/18 06:45 PT 12.6 SECONDS (9.4-12.5) H 01/08/18 06:45 INR 1.09 01/08/18 06:45 APTT 31.7 Seconds (25.1-36.5) 01/06/18 14:40 Attending/Attestation - Attestation I have fully participated in the care of the patient.: Yes I have reviewed all pertinent clinical information, including history, physical exam and plan: Yes Notes (Text): 01/08/18 12:28 Agree with above documentation. Patient reports no abdominal pain, nausea, vomiting, fever/chills. Tolerating PO diet without difficulty. Review of vitals from today are normal. Depression, suicide attempt Overdose from suspected acetaminophen, though unclear substance - Diet as tolerated - Patient completed course of NAC, LFTs remain within normal limits - No change in patient mental status - Patient requires psychiatry follow up - No further planned GI intervention, will sign off case. Please reconsult as necessary, thank you.
--- NOTE | 2018-01-08 13:48 | CON ---
Copied To: Shayla Celaya MD Attending MD: Shayla Celaya MD DATE: 01/08/2018 HISTORY OF PRESENT ILLNESS: The patient is a single 27-year-old female with history of depression and anxiety, no prior history of suicide attempts, psychiatric hospitalizations or medication trial, who has been medically stabilized after intentional versus unintentional Tylenol overdose due to multiple stressors in her life. I met with patient at bedside yesterday as well as today and remains psychiatrically stable indicating that she is not suicidal and she does not want to . She is very future oriented and has emphasized it as very strong coping skills and strong positive factors for continuous stability. The patient indicates that she does want to follow up with psychiatric help once she is discharged. Patient also has very good insight and judgement in this regard. She is coherent. Shows appropriate reactivity; very pleasant, logical, goal directed and intelligent. Vitals, labs, medications were reviewed. IMPRESSION: Adjustment disorder with mixed anxiety and depression, improving. RECOMMENDATIONS: At this time, the patient is psychiatrically cleared. She is not a danger to herself or others. The patient reports that she will pursue mental health treatment once she is ultimately discharged. I spoke with the patient's mother at [phone] at 11:50 a.m. today. The patient's mother feels comfortable with the patient's discharge as it does not feel like to self and others. appear very sincere and appear viable sources. Shayla Celaya MD
[2018-01-08 14:23] VITALS: BP 95/58; PULSE 62; RESP 18; TEMP 98.2
--- NOTE | 2018-01-08 14:52 | CP.PCM.DIS ---
<Bebeto Mcgill - Last Filed: 01/08/18 20:09> Provider - Provider Date of Admission: 01/06/18 15:50 Attending physician: Melchor Francois MD Time Spent in preparation of Discharge (in minutes): 45 Diagnosis - Discharge Diagnosis (1) Tylenol overdose Status: Resolved Priority: Medium (2) Depression Status: Chronic Priority: Medium Hospital Course - Lab Results Lab Results: Most Recent Lab Values WBC 5.1 10^3/ul (4.5-11.0) 01/08/18 06:45 RBC 4.63 10^6/uL (3.5-6.1) 01/08/18 06:45 Hgb 13.7 g/dL (12.0-16.0) 01/08/18 06:45 Hct 40.7 % (36.0-48.0) 01/08/18 06:45 MCV 87.9 fl (80.0-105.0) 01/08/18 06:45 MCH 29.6 pg (25.0-35.0) 01/08/18 06:45 MCHC 33.7 g/dl (31.0-37.0) 01/08/18 06:45 RDW 13.4 % (11.5-14.5) 01/08/18 06:45 Plt Count 226 10^3/uL (120.0-450.0) 01/08/18 06:45 MPV 9.9 fl (7.0-11.0) 01/08/18 06:45 Gran % 55.6 % (50.0-68.0) 01/08/18 06:45 Lymph % (Auto) 32.4 % (22.0-35.0) 01/08/18 06:45 [place] % (Auto) 9.4 % (1.0-6.0) H 01/08/18 06:45 Eos % (Auto) 1.8 % (1.5-5.0) 01/08/18 06:45 Baso % (Auto) 0.8 % (0.0-3.0) 01/08/18 06:45 Gran # 2.83 (1.4-6.5) 01/08/18 06:45 Lymph # (Auto) 1.7 (1.2-3.4) 01/08/18 06:45 [place] # (Auto) 0.5 (0.1-0.6) 01/08/18 06:45 Eos # (Auto) 0.1 (0.0-0.7) 01/08/18 06:45 Baso # (Auto) 0.04 K/mm3 (0.0-2.0) 01/08/18 06:45 PT 12.6 SECONDS (9.4-12.5) H 01/08/18 06:45 INR 1.09 01/08/18 06:45 APTT 31.7 Seconds (25.1-36.5) 01/06/18 14:40 pO2 48 mm/Hg (30-55) 01/06/18 23:48 VBG pH 7.35 (7.32-7.43) 01/06/18 23:48 VBG pCO2 46.0 (40-60) 01/06/18 23:48 VBG HCO3 25.4 mmol/l (21-28) 01/06/18 23:48 VBG Total CO2 26.8 mmol.L (22-28) 01/06/18 23:48 VBG O2 Sat (Calc) 87.2 % (40-65) H 01/06/18 23:48 VBG Base Excess -0.6 mmol/L (0.0-2.0) L 01/06/18 23:48 VBG Potassium 3.7 mmol/L (3.6-5.2) 01/06/18 23:48 Sodium 140.0 mmol/L (132-148) 01/06/18 23:48 Chloride 106.0 mmol/L (98-107) 01/06/18 23:48 Glucose 96 mg/dl (65-105) 01/06/18 23:48 Lactate 1.7 mmol/L (0.7-2.1) 01/06/18 23:48 FiO2 21.0 % 01/06/18 23:48 Sodium 139 mmol/L (132-148) 01/08/18 06:45 Potassium 4.1 mmol/L (3.6-5.0) 01/08/18 06:45 Chloride 106 mmol/L (98-107) 01/08/18 06:45 Carbon Dioxide 25 mmol/L (21-33) 01/08/18 06:45 Anion Gap 12 (10-20) 01/08/18 06:45 BUN 14 mg/dL (7-21) 01/08/18 06:45 Creatinine 0.8 mg/dl (0.7-1.2) 01/08/18 06:45 Est GFR ( Amer) > 60 01/08/18 06:45 Est GFR (Non-Af Amer) > 60 01/08/18 06:45 Random Glucose 79 mg/dL (70-110) 01/08/18 06:45 Calcium 9.1 mg/dL (8.4-10.5) 01/08/18 06:45 Magnesium 2.0 mg/dL (1.7-2.2) 01/06/18 14:40 Total Bilirubin 0.4 mg/dL (0.2-1.3) 01/08/18 06:45 Direct Bilirubin 0.1 mg/dL (0.0-0.4) 01/07/18 14:00 AST 22 U/L (14-36) 01/08/18 06:45 ALT 19 U/L (7-56) 01/08/18 06:45 Alkaline Phosphatase 41 U/L (38-126) 01/08/18 06:45 Total Creatine Kinase 109 U/L (35-230) 01/06/18 14:40 Total Protein 6.6 g/dL (5.8-8.3) 01/08/18 06:45 Albumin 3.6 g/dL (3.0-4.8) 01/08/18 06:45 Globulin 3.0 gm/dL 01/08/18 06:45 Albumin/Globulin Ratio 1.2 (1.1-1.8) 01/08/18 06:45 Beta HCG, Quant < 2.39 mIU/mL (0-6.15) 01/06/18 14:40 Venous Blood Potassium 3.7 mmol/L (3.6-5.2) 01/06/18 23:48 Urine Color Yellow (YELLOW) 01/06/18 15:45 Urine Appearance Clear (CLEAR) 01/06/18 15:45 Urine pH 7.0 (4.7-8.0) 01/06/18 15:45 Ur Specific [place] 1.010 (1.005-1.035) 01/06/18 15:45 Urine Protein Negative mg/dL (<30 mg/dL) 01/06/18 15:45 Urine Glucose (UA) Negative mg/dL (NEGATIVE) 01/06/18 15:45 Urine Ketones Negative mg/dL (NEGATIVE) 01/06/18 15:45 Urine Blood Trace-intact (NEGATIVE) H 01/06/18 15:45 Urine Nitrate Negative (NEGATIVE) 01/06/18 15:45 Urine Bilirubin Negative (NEGATIVE) 01/06/18 15:45 Urine Urobilinogen 0.2 E.U./dL (<1 E.U./dL) 01/06/18 15:45 Ur Leukocyte Esterase Moderate [place]/uL (NEGATIVE) H 01/06/18 15:45 Urine RBC 2 - 5 /hpf (0-2) 01/06/18 15:45 Urine WBC 20 - 25 /hpf (0-6) 01/06/18 15:45 Ur Epithelial Cells 10 - 12 /hpf (0-5) 01/06/18 15:45 Urine Bacteria Many (NEG) 01/06/18 15:45 Urine HCG, Qual Negative (NEGATIVE) 01/06/18 15:45 Salicylates < 1 mg/dL (2.0-20.0) L 01/06/18 14:40 Urine Opiates Screen Negative (NEGATIVE) 01/06/18 15:45 Urine Methadone Screen Negative (NEGATIVE) 01/06/18 15:45 Acetaminophen < 10.0 ug/ml (10.0-20.0) L 01/07/18 14:00 Ur Barbiturates Screen Negative (NEGATIVE) 01/06/18 15:45 Ur Phencyclidine Scrn Negative (NEGATIVE) 01/06/18 15:45 Ur Amphetamines Screen Negative (NEGATIVE) 01/06/18 15:45 U Benzodiazepines Scrn Negative (NEGATIVE) 01/06/18 15:45 U Oth Cocaine Metabols Negative (NEGATIVE) 01/06/18 15:45 U Cannabinoids Screen Negative (NEGATIVE) 01/06/18 15:45 Alcohol, Quantitative < 10 mg/dL (0-10) 01/06/18 14:40 Hepatitis A IgM Ab Negative (NEGATIVE) 01/06/18 14:40 Hep Bs Antigen Negative (NEGATIVE) 01/06/18 14:40 Hep B Core IgM Ab Negative (NEGATIVE) 01/06/18 14:40 Hepatitis C Antibody Negative (NEGATIVE) 01/06/18 14:40 - Hospital Course Hospital Course: Ms. Salazar is a 27 year old female with PMH of depression presenting to the ED with unintentional acetaminophen overdose. Poison control was contacted and she was started on 16 hour protocol of NAC in ED. Acetaminophen levels on admission was 27, INR was 1.06, and LFT's were within normal range. Patient was in the ICU for monitoring and had a one-to-one sitter. Patient was treated with NAC, zofran, and protonix. During the course of her hospital stay, patient got an EKG that showed normal sinus rhythm at 66 bpm. Chest xray showed no acute disease. Acetaminophen level was <10 and LFT's and INR were within normal range upon discharge. Gastroenterology (Dr. Burnham) was consulted and recommended supportive care. Psychiatry (Dr. Celaya) was consulted and concluded that patient is not suicidal and does not want to . Patient is psychiatrically cleared for discharge at this time. Dr. Celaya also spoke to patient's mother and she feels comfortable with the patient's discharge as she does not feel like harming herself or others. Patient reports that she will pursue mental health treatment once she is discharged. She was instructed to follow up with a primary doctor within 3-5 days of discharge, psychiatrist (Dr. Celaya) within 1- 2 weeks of discharge, and OB-FBI PROFILER within 1-2 weeks of discharge for her menstrual cramps. She was also told to avoid taking tylenol or any other medications containing acetaminophen. She was instructed to take ibuprofen if needed and to follow instructions and dosage very closely. Patient was instructed to resume activities as tolerated. Patient further informed to return to the ED for worsening or newly concerning symptoms.Patient is now medically stable for discharge. Discharge Exam - Head Exam Head Exam: ATRAUMATIC, NORMOCEPHALIC - Eye Exam Eye Exam: Normal appearance - ENT Exam ENT Exam: Mucous Membranes Moist - Respiratory Exam Respiratory Exam: Clear to PA & Lateral. absent: Rales, Rhonchi, Wheezes - Cardiovascular Exam Cardiovascular Exam: REGULAR RHYTHM, +S1, +S2. absent: Gallop, Rubs, Systolic Murmur - GI/Abdominal Exam GI & Abdominal Exam: Normal Bowel Sounds, Soft. absent: Tenderness - Extremities Exam Additional comments: no calf tenderness or pedal edema - Neurological Exam Neurological exam: Alert, Oriented x3 - Psychiatric Exam Psychiatric exam: Normal Affect, Normal Mood - Skin Skin Exam: Dry, Intact, Warm Discharge Plan - Follow Up Plan Condition: FAIR Disposition: HOME/ ROUTINE Instructions: Depression (DC), Acetaminophen Overdose (DC) Additional Instructions: You are medically stable for discharge. Please follow the following instructions : 1. Avoid taking tylenol or any other medications containing acetaminophen for the next 3 weeks so your liver can heal. Take ibuprofen only if needed and follow dosage and instructions as labeled on the pill bottle closely - DO NOT take more than listed amount. 2. Please establish care with a Primary Medical Doctor and please see him/her within one week of discharge so he/she may monitor your course. The doctor can also address your headaches and will possibly prescribe you medication to treat your headaches (DO NOT take more than listed amount on pill bottle if you are taking an over the counter to treat your headaches - taking more pills will NOT cure your headaches) 3. Please follow up with psychiatrist (Dr. Celaya) within 1 or 2 weeks of discharge to address the recent stressors you've had - contact information has been provided 4. Please follow up with Ob-Cylinder Press Feeder within 1 or 2 weeks of discharge to address painful menstrual cramping (please avoid self treating with tylenol/midol for the time being - instead discuss with an OB-FBI PROFILER for this pain so he/she may prescribe you the correct medication to address the pain) 5. You have denied suicidal thoughts or thoughts to harm yourself, however if you ever have any suicidal thoughts or thoughts to harm yourself in the future, please contact your psychiatrist immediately or go to the emergency room immediately 6. There are some test results that are still pending at the time of your discharge - if results come back abnormal we will call you to discuss the findings 7. Return to the nearest emergency room if you experience worsening or newly concerning symptoms Referrals: Shayla Celaya MD [Staff Provider] - <Melchor Francois - Last Filed: 01/09/18 07:39> Provider - Provider Date of Admission: 01/06/18 15:50 Attending physician: Melchor Francois MD Hospital Course - Lab Results Lab Results: Micro Results 01/06/18 20:00 Nose MRSA Culture (Admit) - Final MRSA NOT DETECTED Most Recent Lab Values WBC 5.1 10^3/ul (4.5-11.0) 01/08/18 06:45 RBC 4.63 10^6/uL (3.5-6.1) 01/08/18 06:45 Hgb 13.7 g/dL (12.0-16.0) 01/08/18 06:45 Hct 40.7 % (36.0-48.0) 01/08/18 06:45 MCV 87.9 fl (80.0-105.0) 01/08/18 06:45 MCH 29.6 pg (25.0-35.0) 01/08/18 06:45 MCHC 33.7 g/dl (31.0-37.0) 01/08/18 06:45 RDW 13.4 % (11.5-14.5) 01/08/18 06:45 Plt Count 226 10^3/uL (120.0-450.0) 01/08/18 06:45 MPV 9.9 fl (7.0-11.0) 01/08/18 06:45 Gran % 55.6 % (50.0-68.0) 01/08/18 06:45 Lymph % (Auto) 32.4 % (22.0-35.0) 01/08/18 06:45 [place] % (Auto) 9.4 % (1.0-6.0) H 01/08/18 06:45 Eos % (Auto) 1.8 % (1.5-5.0) 01/08/18 06:45 Baso % (Auto) 0.8 % (0.0-3.0) 01/08/18 06:45 Gran # 2.83 (1.4-6.5) 01/08/18 06:45 Lymph # (Auto) 1.7 (1.2-3.4) 01/08/18 06:45 [place] # (Auto) 0.5 (0.1-0.6) 01/08/18 06:45 Eos # (Auto) 0.1 (0.0-0.7) 01/08/18 06:45 Baso # (Auto) 0.04 K/mm3 (0.0-2.0) 01/08/18 06:45 PT 12.6 SECONDS (9.4-12.5) H 01/08/18 06:45 INR 1.09 01/08/18 06:45 APTT 31.7 Seconds (25.1-36.5) 01/06/18 14:40 pO2 48 mm/Hg (30-55) 01/06/18 23:48 VBG pH 7.35 (7.32-7.43) 01/06/18 23:48 VBG pCO2 46.0 (40-60) 01/06/18 23:48 VBG HCO3 25.4 mmol/l (21-28) 01/06/18 23:48 VBG Total CO2 26.8 mmol.L (22-28) 01/06/18 23:48 VBG O2 Sat (Calc) 87.2 % (40-65) H 01/06/18 23:48 VBG Base Excess -0.6 mmol/L (0.0-2.0) L 01/06/18 23:48 VBG Potassium 3.7 mmol/L (3.6-5.2) 01/06/18 23:48 Sodium 140.0 mmol/L (132-148) 01/06/18 23:48 Chloride 106.0 mmol/L (98-107) 01/06/18 23:48 Glucose 96 mg/dl (65-105) 01/06/18 23:48 Lactate 1.7 mmol/L (0.7-2.1) 01/06/18 23:48 FiO2 21.0 % 01/06/18 23:48 Sodium 139 mmol/L (132-148) 01/08/18 06:45 Potassium 4.1 mmol/L (3.6-5.0) 01/08/18 06:45 Chloride 106 mmol/L (98-107) 01/08/18 06:45 Carbon Dioxide 25 mmol/L (21-33) 01/08/18 06:45 Anion Gap 12 (10-20) 01/08/18 06:45 BUN 14 mg/dL (7-21) 01/08/18 06:45 Creatinine 0.8 mg/dl (0.7-1.2) 01/08/18 06:45 Est GFR ( Amer) > 60 01/08/18 06:45 Est GFR (Non-Af Amer) > 60 01/08/18 06:45 Random Glucose 79 mg/dL (70-110) 01/08/18 06:45 Calcium 9.1 mg/dL (8.4-10.5) 01/08/18 06:45 Magnesium 2.0 mg/dL (1.7-2.2) 01/06/18 14:40 Total Bilirubin 0.4 mg/dL (0.2-1.3) 01/08/18 06:45 Direct Bilirubin 0.1 mg/dL (0.0-0.4) 01/07/18 14:00 AST 22 U/L (14-36) 01/08/18 06:45 ALT 19 U/L (7-56) 01/08/18 06:45 Alkaline Phosphatase 41 U/L (38-126) 01/08/18 06:45 Total Creatine Kinase 109 U/L (35-230) 01/06/18 14:40 Total Protein 6.6 g/dL (5.8-8.3) 01/08/18 06:45 Albumin 3.6 g/dL (3.0-4.8) 01/08/18 06:45 Globulin 3.0 gm/dL 01/08/18 06:45 Albumin/Globulin Ratio 1.2 (1.1-1.8) 01/08/18 06:45 Beta HCG, Quant < 2.39 mIU/mL (0-6.15) 01/06/18 14:40 Venous Blood Potassium 3.7 mmol/L (3.6-5.2) 01/06/18 23:48 Urine Color Yellow (YELLOW) 01/06/18 15:45 Urine Appearance Clear (CLEAR) 01/06/18 15:45 Urine pH 7.0 (4.7-8.0) 01/06/18 15:45 Ur Specific [place] 1.010 (1.005-1.035) 01/06/18 15:45 Urine Protein Negative mg/dL (<30 mg/dL) 01/06/18 15:45 Urine Glucose (UA) Negative mg/dL (NEGATIVE) 01/06/18 15:45 Urine Ketones Negative mg/dL (NEGATIVE) 01/06/18 15:45 Urine Blood Trace-intact (NEGATIVE) H 01/06/18 15:45 Urine Nitrate Negative (NEGATIVE) 01/06/18 15:45 Urine Bilirubin Negative (NEGATIVE) 01/06/18 15:45 Urine Urobilinogen 0.2 E.U./dL (<1 E.U./dL) 01/06/18 15:45 Ur Leukocyte Esterase Moderate [place]/uL (NEGATIVE) H 01/06/18 15:45 Urine RBC 2 - 5 /hpf (0-2) 01/06/18 15:45 Urine WBC 20 - 25 /hpf (0-6) 01/06/18 15:45 Ur Epithelial Cells 10 - 12 /hpf (0-5) 01/06/18 15:45 Urine Bacteria Many (NEG) 01/06/18 15:45 Urine HCG, Qual Negative (NEGATIVE) 01/06/18 15:45 Salicylates < 1 mg/dL (2.0-20.0) L 01/06/18 14:40 Urine Opiates Screen Negative (NEGATIVE) 01/06/18 15:45 Urine Methadone Screen Negative (NEGATIVE) 01/06/18 15:45 Acetaminophen < 10.0 ug/ml (10.0-20.0) L 01/07/18 14:00 Ur Barbiturates Screen Negative (NEGATIVE) 01/06/18 15:45 Ur Phencyclidine Scrn Negative (NEGATIVE) 01/06/18 15:45 Ur Amphetamines Screen Negative (NEGATIVE) 01/06/18 15:45 U Benzodiazepines Scrn Negative (NEGATIVE) 01/06/18 15:45 U Oth Cocaine Metabols Negative (NEGATIVE) 01/06/18 15:45 U Cannabinoids Screen Negative (NEGATIVE) 01/06/18 15:45 Alcohol, Quantitative < 10 mg/dL (0-10) 01/06/18 14:40 RPR Nonreactive (NONREACTIVE) 01/08/18 06:45 Hepatitis A IgM Ab Negative (NEGATIVE) 01/06/18 14:40 Hep Bs Antigen Negative (NEGATIVE) 01/06/18 14:40 Hep B Core IgM Ab Negative (NEGATIVE) 01/06/18 14:40 Hepatitis C Antibody Negative (NEGATIVE) 01/06/18 14:40 Attending/Attestation - Attestation I have personally seen and examined this patient.: Yes I have fully participated in the care of the patient.: Yes I have reviewed all pertinent clinical information, including history, physical exam and plan: Yes Notes (Text): 01/08/18 27 year old female with past medical history of depression who presented with acetaminophen overdose. Initial tylenol level was 47 and patient was started on NAC treatment. Tylenol level has come down <10. LFTs remained within normal limits. Her nausea/vomiting symptoms resolved and she was tolerating diet. GI was seeing patient as well. Patient was initially on 1:1 observation. She was seen by psychiatry who cleared patient for discharge. Patient denies feeling depressed, denies thoughts of hurting herself. Corroborated with mother as well. Patient is discharged to follow up at [email or web address] Follow up with psychiatrist. Follow up with micro computer data processor. Counselled on taking prescription pills only as prescribed and using OTC pill only as directed on label. Avoid tylenol for at least few weeks for now. Melchor Francois MD Hospitalist.
== END 2018-01-08 19:00 | disposition home or self-care (01) | DRG 449 ==
LOC: ED 14:16 → ERH 15:50 → ICU 19:03 → 5RSO 01-07 13:09
PROVIDERS: ADMIT Internal Medicine; ATTEND Internal Medicine
DX: T39.1X2A Poisoning by 4-Aminophenol derivatives, intentional self-harm, initial encounter (principal); N39.0 Urinary tract infection, site not specified; F43.23 Adjustment disorder with mixed anxiety and depressed mood; N80.9 Endometriosis, unspecified

== ENCOUNTER 2018-04-20 18:08 | Emergency (ER) | payer MEDICAID ==
[2018-04-20 18:09] VITALS: BMI 25.7
[2018-04-20 18:31] VITALS: TEMP 98.5
[2018-04-20] MEDS ORDERED: Sodium Chloride 0.9% 1,000 ML IV STA (19:31)
--- NOTE | 2018-04-20 19:35 | ED PDOC ---
Arrival/HPI - General Chief Complaint: Abdominal Pain Time Seen by Provider: 04/20/18 18:54 Historian: Patient - History of Present Illness Narrative History of Present Illness (Text): 04/20/18 19:35 28 year old female whose past medical history includes depression, who presents to the Emergency department with her mother complaining of diffuse sharp abdominal pain for the past 2 days. Patient reports that her menstrual period started 3 days ago and 2 days ago she started experiencing abdominal pain, dizziness, and dyspnea. She notes experiencing abdominal pain during her menstrual period in the past, but states her current pain feels different. Her dyspnea has since improved. Per patient she hasn't used any control, and denies any family history of hypercoagulation. Of note her mother did have a pulmonary embolism. Last night and this morning she experienced episodes of vomiting, and denies eating anything suspicious the last 2 days. Patient admits to constipation, which is normal for her while she is menstruating. Patient denies fevers, chills, cough, chest pain, dyspnea on exertion, diarrhea, dysuria, neck pain, headache, or any other complaint. Time/Duration: < week Symptom Onset: Sudden Symptom Course: Intermittent Quality: Stabbing Context: Home Past Medical History - Provider Review Nursing Documentation Reviewed: Yes - Infectious Disease Hx of Infectious Diseases: None - Cardiac Hx Cardiac Disorders: No - Pulmonary Hx Respiratory Disorders: No - Neurological Hx Neurological Disorder: No - HEENT Hx HEENT Disorder: No - Renal Hx Renal Disorder: No - Endocrine/Metabolic Hx Endocrine Disorders: No - Hematological/Oncological Hx Blood Disorders: No - Integumentary Hx Dermatological Disorder: No - Musculoskeletal/Rheumatological Hx Musculoskeletal Disorders: No - Gastrointestinal Hx Gastrointestinal Disorders: No - Genitourinary/Gynecological Hx Genitourinary Disorders: Yes Other/Comment: endometriosis - Psychiatric Hx Psychophysiologic Disorder: Yes Hx Depression: Yes Hx Substance Use: No Family/Social History - Physician Review Nursing Documentation Reviewed: Yes Family/Social History: No Known Family HX Smoking Status: Never Smoked Hx Alcohol Use: No Hx Substance Use: No Allergies/Home Meds Allergies/Adverse Reactions: Allergies No Known Allergies Allergy (Verified 04/20/18 18:30) Home Medications: Home Meds Medication Instructions Recorded Confirmed No Known Home Med 01/06/18 04/20/18 Review of Systems - Physician Review All systems were reviewed & negative as marked: Yes - Review of Systems Constitutional: absent: Fevers Respiratory: SOB. absent: Cough Cardiovascular: absent: Chest Pain, VILLALOBOS Gastrointestinal: Abdominal Pain, Vomiting. absent: Constipation, Diarrhea Genitourinary Female: absent: Dysuria Musculoskeletal: Back Pain. absent: Neck Pain Neurological: Dizziness. absent: Headache Physical Exam Vital Signs Reviewed: Yes Vital Signs Temp Pulse Resp BP Pulse Ox 04/20/18 18:30 98.5 F 60 16 107/69 98 Temperature: Afebrile Blood Pressure: Normal Pulse: Regular Respiratory Rate: Normal Appearance: Positive for: Well-Appearing Mental Status: Positive for: Alert and Oriented X 3 - Systems Exam Head: Present: Atraumatic, Normocephalic Pupils: Present: PERRL Extroacular Muscles: Present: EOMI Conjunctiva: Present: Normal Mouth: Present: Moist Mucous Membranes Neck: Present: Normal Range of Motion Respiratory/Chest: Present: Clear to Auscultation, Good Air Exchange. No: Respiratory Distress, Accessory Muscle Use Cardiovascular: Present: Regular Rate and Rhythm, Normal S1, S2. No: Murmurs Abdomen: Present: Tenderness (LLQ). No: Distention, Peritoneal Signs Back: Present: CVA Tenderness (Right CVA tenderness) Upper Extremity: Present: Normal Inspection. No: Cyanosis, Edema Lower Extremity: Present: Normal Inspection. No: Edema Neurological: Present: GCS=15, CN II-XII Intact, Speech Normal Skin: Present: Warm, Dry, Normal Color. No: Rashes Psychiatric: Present: Alert, Oriented x 3, Normal Insight, Normal Concentration Medical Decision Making ED Course and Treatment: 04/20/18 19:35 Impression: 28 year old female complaining of diffuse sharp abdominal pain, dizziness, and dyspnea, which started 2 days ago. Differential Diagnosis included but are not limited to: Colitis Diverticulitis Premenstrual syndrome Plan: -- Abdominal and Pelvic CT with IV contrast -- Labs -- Blood work -- D-dimer -- Chest X-ray -- Toradol -- Zofran -- IV fluids -- Urinalysis -- Reassess and disposition Prior Visits: Notes and results from previous visits were reviewed. Progress Notes: 04/20/18 20:04 Patient endorsed to . Pending her labs and CT of abdomen and pelvis. - RAD Interpretation Radiology Orders: 04/20/18 19:27 ABD & PELVIS IV CONTRAST ONLY [CT] Stat 04/20/18 19:32 CHEST PORTABLE [RAD] Stat - Medication Orders Current Medication Orders: Sodium Chloride (Sodium Chloride 0.9%) 1,000 mls @ 999 mls/hr IV .Q1H1M STA Stop: 04/20/18 20:31 Discontinued Medications Ketorolac Tromethamine (Toradol) 30 mg IVP STAT STA Stop: 04/20/18 19:31 Ondansetron HCl (Zofran Inj) 4 mg IVP STAT STA Stop: 04/20/18 19:27 - Scribe Statement The provider has reviewed the documentation as recorded by the Scribe Sajan Patiño Provider Scribe Attestation: All medical record entries made by the Scribe were at my direction and personally dictated by me. I have reviewed the chart and agree that the record accurately reflects my personal performance of the history, physical exam, medical decision making, and the department course for this patient. I have also personally directed, reviewed, and agree with the discharge instructions and disposition. Disposition/Present on Arrival - Present on Arrival History of DVT/PE: No History of Uncontrolled Diabetes: No Urinary Catheter: No History of Decub. Ulcer: No History Surgical Site Infection Following: None - Disposition Forms: [employer] (Pashto)
[2018-04-20 19:59] LABS: URINE BILIRUBIN NEGATIVE (NEGATIVE); URINE BLOOD LARGE (NEGATIVE); URINE GLUCOSE (UA) NEGATIVE (NEGATIVE); URINE LEUKOCYTE ESTERASE TRACE Leu/uL (NEGATIVE); URINE PROTEIN TRACE mg/dL (<30 mg/dL)
[2018-04-20 20:04] LABS: URINE COLOR YELLOW (YELLOW)
[2018-04-20 20:05] LABS: URINE APPEARANCE SLIGHT-CLOUDY (CLEAR)
[2018-04-20 20:06] LABS: HCG,QUALITATIVE URINE NEGATIVE (NEGATIVE)
[2018-04-20 20:10] LABS: BASO # 0.03 K/mm3 (0.0-2.0); BASO % 0.6 % (0.0-3.0); EOS # 0.1 (0.0-0.7); GRAN # 2.53 (1.4-6.5); GRAN % 51.1 % (50.0-68.0); HEMOGLOBIN 12.1 g/dL (12.0-16.0); LYMPH # 1.9 (1.2-3.4); LYMPH % 37.4 % (22.0-35.0); MEAN CELL VOLUME 88.9 fl (80.0-105.0); MEAN CORPUSCULAR HEMOGLOBIN 28.7 pg (25.0-35.0); MEAN CORPUSCULAR HGB CONC 32.3 g/dl (31.0-37.0); MEAN PLATELET VOLUME 9.2 fl (7.0-11.0); MONO # 0.5 (0.1-0.6); MONO % 9.9 % (1.0-6.0); RBC 4.22 10^6/uL (3.5-6.1); RED CELL DISTRIBUTION WIDTH 13.4 % (11.5-14.5)
[2018-04-20 20:14] LABS: URINE RBC TNTC /hpf (0-2); URINE WBC 0 - 2 /hpf (0-6)
--- NOTE | 2018-04-20 20:20 | ED PDOC ---
Physical Exam Vital Signs Reviewed: Yes Vital Signs Temp Pulse Resp BP Pulse Ox 04/20/18 18:30 98.5 F 60 16 107/69 98 Temperature: Afebrile Blood Pressure: Normal Pulse: Regular Respiratory Rate: Normal Appearance: Positive for: Well-Appearing, Non-Toxic Pain Distress: None Mental Status: Positive for: Alert and Oriented X 3 Medical Decision Making ED Course and Treatment: Progress notes: 04/20/18 20:20 Patient endorsed to me by Dr. Hernandez. Pending labs, and CT of abdomen and Pelvis. 04/20/18 On reevaluation, patient says she is feeling better and will follow up with PMD. Antibiotics were given. - Lab Interpretations Lab Results: 04/20/18 19:50 Lab Results 04/20/18 19:50: WBC 5.0, RBC 4.22, Hgb 12.1, Hct 37.5, MCV 88.9, MCH 28.7, MCHC 32.3, RDW 13.4, Plt Count 240, MPV 9.2, Gran % 51.1, Lymph % (Auto) 37.4 H, [place] % (Auto) 9.9 H, Eos % (Auto) 1.0 L, Baso % (Auto) 0.6, Gran # 2.53, Lymph # (Auto) 1.9, [place] # (Auto) 0.5, Eos # (Auto) 0.1, Baso # (Auto) 0.03 04/20/18 18:45: Urine Color Yellow, Urine Appearance Slight-cloudy, Urine pH 6.0, Ur Specific [place] 1.025, Urine Protein Trace H, Urine Glucose (UA) Negative, Urine Ketones Trace H, Urine Blood Large H, Urine Nitrate Negative, Urine Bilirubin Negative, Urine Urobilinogen 1.0 H, Ur Leukocyte Esterase Trace H, Urine RBC Tntc, Urine WBC 0 - 2, Ur Epithelial Cells None, Urine HCG, Qual Negative - RAD Interpretation Narrative RAD Interpretations (Text): CT of Abdomen and Pelvis with IV contrast reviewed by radiologist, shows: Exam Date: Apr 20, 2018 8:56:20 PM FINDINGS: LUNG BASES: The lung bases appear clear. No pleural effusions are seen. LIVER: Unremarkable. GALLBLADDER AND BILE DUCTS: The gallbladder is contracted. No radioopaque gallstones are seen. No biliary ductal dilatation is evident. PANCREAS: Unremarkable. SPLEEN: Unremarkable. ADRENAL GLANDS: Unremarkable. KIDNEYS, URETERS, AND BLADDER: The kidneys appear within normal limits. There is no hydronephrosis or hydroureter. No urinary calculi are seen. STOMACH AND BOWEL: Thick walled (up to 4 mm) fluid filled duodenum and loops of jejunum as well as ileum compatible with enteritis. Infectious and inflammatory etiologies are considered. APPENDIX: No evidence of acute appendicitis on CT examination. PERITONEUM: No free fluid. No free air. LYMPH NODES: No lymphadenopathy is evident. REPRODUCTIVE: Unremarkable as visualized. VASCULATURE: No evidence of abdominal aortic aneurysm. BONES: No aggressive appearing osseous lesion. No acute osseous pathology evident. IMPRESSION: Panenteritis. Infectious and inflammatory etiologies are considered. Radiology Orders: 04/20/18 19:27 ABD & PELVIS IV CONTRAST ONLY [CT] Stat 04/20/18 19:32 CHEST PORTABLE [RAD] Stat Larry Car Operator: Radiologist - Medication Orders Current Medication Orders: Sodium Chloride (Sodium Chloride 0.9%) 1,000 mls @ 999 mls/hr IV .Q1H1M STA Stop: 04/20/18 20:31 Last Admin: 04/20/18 19:51 Dose: 999 mls/hr eMAR Start Stop Document 04/20/18 19:51 CLARICE (Rec: 04/20/18 19:52 [email or web address] Intravenous Solution Start Date 04/20/18 Start Time 19:52 End Date 04/20/18 End time 20:52 Total Infusion Time 60 Discontinued Medications Ketorolac Tromethamine (Toradol) 30 mg IVP STAT STA Stop: 04/20/18 19:31 Last Admin: 04/20/18 19:52 Dose: 30 mg MAR Pain Assessment Document 04/20/18 19:52 CLARICE (Rec: 04/20/18 19:53 [facility] [id number] Pain Reassessment Is this a pain reassessment? Yes Presence of Pain Presence of Pain Yes Pain Scale Used Protocol: PSCALES Pain Scale Used Numeric Location Left, Right or Bilateral Left Upper or Lower Upper Pain Location Body Site Abdomen Description Intensity of Pain at present 6 IVP Administration Document 04/20/18 19:52 CLARICE (Rec: 04/20/18 19:53 [facility] [id number] Charges for Administration # of IVP Administrations 1 Ondansetron HCl (Zofran Inj) 4 mg IVP STAT STA Stop: 04/20/18 19:27 Last Admin: 04/20/18 19:52 Dose: 4 mg IVP Administration Document 04/20/18 19:52 CLARICE (Rec: 04/20/18 19:52 CLARICE [facility] [id number]) Charges for Administration # of IVP Administrations 1 - Scribe Statement The provider has reviewed the documentation as recorded by the Scribe Sajan Haoshirley Provider Scribe Attestation: All medical record entries made by the Scribe were at my direction and personally dictated by me. I have reviewed the chart and agree that the record accurately reflects my personal performance of the history, physical exam, medical decision making, and the department course for this patient. I have also personally directed, reviewed, and agree with the discharge instructions and disposition. Disposition/Present on Arrival - Present on Arrival Any Indicators Present on Arrival: No History of DVT/PE: No History of Uncontrolled Diabetes: No Urinary Catheter: No History of Decub. Ulcer: No History Surgical Site Infection Following: None - Disposition Have Diagnosis and Disposition been Completed?: Yes Diagnosis: Enteritis Disposition: HOME/ ROUTINE Disposition Time: 22:25 Condition: GOOD Discharge Instructions (ExitCare): Diarrhea in Adolescents and Adults, Acute Abdomen (Belly Pain), Adult (DC) Additional Instructions: CAROL DE LOS SANTOS, thank you for letting us take care of you today. The emergency medical care you received today was directed at your acute symptoms. If you were prescribed any medication, please fill it and take as directed. It may take several days for your symptoms to resolve. Return to the Emergency Department if your symptoms worsen, do not improve, or if you have any other problems. Please contact your doctor or call one of the physicians/clinics you have been referred to that are listed on the Patient Visit Information form that is included in your discharge packet. Bring any paperwork you were given at discharge with you along with any medications you are taking to your follow up visit. Our treatment cannot replace ongoing medical care by a primary care provider outside of the emergency department. Thank you for allowing the [facility] team to be part of your care today. Follow up with your primary care doctor this week for re-evaluation and further management. Prescriptions: Ciprofloxacin [Cipro] 500 mg PO BID #14 tab metroNIDAZOLE [Flagyl] 500 mg PO Q8 #21 tab Referrals: [facility], [Non-Staff] - Follow up with primary Forms: disco volante (Japanese)
[2018-04-20 20:21] LABS: INR 1.09; PROTHROMBIN TIME 12.5 SECONDS (9.4-12.5)
[2018-04-20 20:22] LABS: ALB/GLOB RATIO 1.2 (1.1-1.8); ALT/SGPT 21 U/L (7-56); AST/SGOT 40 U/L (14-36); BLOOD UREA NITROGEN 16 mg/dL (7-21); GFR NON-AFRICAN AMERICAN > 60; LIPASE 135 U/L (23-300)
[2018-04-20 20:24] LABS: D DIMER < 200 ng/mlDDU (0-243)
[2018-04-20] MEDS ORDERED: Iohexol 350 MG/100 ML VIAL ONE (20:46)
[2018-04-20 22:58] VITALS: BP 110/85; PULSE 97; RESP 18; O2SAT 100
--- NOTE | 2018-04-21 09:22 | RAD ---
Date of service: 04/20/2018 HISTORY: sob COMPARISON: 01/06/2018 FINDINGS: LUNGS: No active pulmonary disease. PLEURA: No significant pleural effusion identified, no pneumothorax apparent. CARDIOVASCULAR: No aortic atherosclerotic calcification present. Normal cardiac size. No pulmonary vascular congestion. OSSEOUS STRUCTURES: No significant abnormalities. VISUALIZED UPPER ABDOMEN: Normal. OTHER FINDINGS: None. IMPRESSION: No active disease.
--- NOTE | 2018-04-21 10:30 | CT ---
Date of service: 04/20/2018 PROCEDURE: CT Abdomen and Pelvis with and without intravenous contrast HISTORY: LLQ abdominal pain COMPARISON: None. TECHNIQUE: Axial images of the abdomen were obtained in the pre contrast, portal venous and delayed phases of enhancement. Coronal and sagittal reformats were generated. Contrast dose: Radiation dose: Total exam DLP = 339.84 mGy-cm. This CT exam was performed using one or more of the following dose reduction techniques: Automated exposure control, adjustment of the mA and/or kV according to patient size, and/or use of iterative reconstruction technique. FINDINGS: LOWER THORAX: Unremarkable. LIVER: Unremarkable. No gross lesion or ductal dilatation. GALLBLADDER AND BILE DUCTS: Unremarkable. PANCREAS: Unremarkable. No gross lesion or ductal dilatation. SPLEEN: Unremarkable. ADRENALS: Unremarkable. No mass. KIDNEYS AND URETERS: Unremarkable. No hydronephrosis. No solid mass. VASCULATURE: Unremarkable. No aortic aneurysm. No aortic atherosclerotic calcification or mural plaque present. BOWEL: Unremarkable. No obstruction. No gross mural thickening. APPENDIX: Normal appendix. PERITONEUM: Unremarkable. No free fluid. No free air. LYMPH NODES: Unremarkable. No enlarged lymph nodes. BLADDER: Unremarkable. REPRODUCTIVE: Unremarkable. BONES: No acute fracture. OTHER FINDINGS: None. IMPRESSION: Unremarkable pre and post contrast enhanced CT of the abdomen and pelvis.
== END 2018-04-20 22:44 | disposition home or self-care (01) ==
LOC: ED 18:08
DX: K52.9 Noninfective gastroenteritis and colitis, unspecified (principal)
CPT/HCPCS: 71045; 74177; 80053; 81001; 83690; 83735; 84703; 85025; 85378; 85610; 85730; 87086; 96361; 96374; 96375; 99284; J1885; J2405; J7030; Q9967

== ENCOUNTER 2018-05-05 09:40 | Emergency (ER) | payer MEDICAID ==
[2018-05-05 09:52] VITALS: BMI 22.1
[2018-05-05 09:54] VITALS: TEMP 97.6; O2SAT 100
--- NOTE | 2018-05-05 10:19 | ED PDOC ---
Arrival/HPI - General Chief Complaint: ENT Problem Time Seen by Provider: 05/05/18 10:01 Historian: Patient - History of Present Illness Narrative History of Present Illness (Text): 05/05/18 10:16 28yo female who present to ED with complaint of sore throat and painful lump on her chin. States she noticed the lump when she wok up this morning. she denies dysphagia, nausea, vomiting, abdominal pain, fever, chills, sick contact, any other complaint. Past Medical History - Provider Review Nursing Documentation Reviewed: Yes - Infectious Disease Hx of Infectious Diseases: None - Cardiac Hx Cardiac Disorders: No - Pulmonary Hx Respiratory Disorders: No - Neurological Hx Neurological Disorder: No - HEENT Hx HEENT Disorder: No - Renal Hx Renal Disorder: No - Endocrine/Metabolic Hx Endocrine Disorders: No - Hematological/Oncological Hx Blood Disorders: No - Integumentary Hx Dermatological Disorder: No - Musculoskeletal/Rheumatological Hx Musculoskeletal Disorders: No - Gastrointestinal Hx Gastrointestinal Disorders: No - Genitourinary/Gynecological Hx Genitourinary Disorders: Yes Other/Comment: endometriosis - Psychiatric Hx Psychophysiologic Disorder: Yes Hx Depression: Yes Hx Substance Use: No Family/Social History - Physician Review Nursing Documentation Reviewed: Yes Family/Social History: Unknown Family HX Smoking Status: Never Smoked Hx Alcohol Use: No Hx Substance Use: No Allergies/Home Meds Allergies/Adverse Reactions: Allergies No Known Allergies Allergy (Verified 05/05/18 09:53) Review of Systems - Physician Review All systems were reviewed & negative as marked: Yes - Review of Systems Constitutional: Normal Eyes: Normal ENT: Sore Throat Respiratory: Normal Cardiovascular: Normal Gastrointestinal: Normal Genitourinary Female: Normal Musculoskeletal: Normal Skin: Normal Neurological: Normal Endocrine: Normal Hemo/Lymphatic: Normal Psychiatric: Normal Physical Exam Vital Signs Reviewed: Yes Vital Signs Temp Pulse Resp BP Pulse Ox 05/05/18 09:53 97.6 F 62 17 105/52 L 100 Temperature: Afebrile Blood Pressure: Normal Pulse: Regular Respiratory Rate: Normal Appearance: Positive for: Well-Appearing, Non-Toxic, Comfortable Pain Distress: None Mental Status: Positive for: Alert and Oriented X 3 - Systems Exam Head: Present: Atraumatic, Normocephalic Pupils: Present: PERRL Extroacular Muscles: Present: EOMI Conjunctiva: Present: Normal Mouth: Present: Moist Mucous Membranes Pharnyx: Present: ERYTHEMA. No: EXUDATE, TONSILS ENLARGED, Peritonsilar Swelling, Uvular Deviation, Muffled/Hoarse Voice, Strider Neck: Present: Normal Range of Motion Respiratory/Chest: Present: Clear to Auscultation, Good Air Exchange. No: Respiratory Distress, Accessory Muscle Use Cardiovascular: Present: Regular Rate and Rhythm, Normal S1, S2. No: Murmurs Abdomen: No: Tenderness, Distention, Peritoneal Signs Back: Present: Normal Inspection Upper Extremity: Present: Normal Inspection. No: Cyanosis, Edema Lower Extremity: Present: Normal Inspection. No: Edema Neurological: Present: GCS=15, CN II-XII Intact, Speech Normal Skin: Present: Warm, Dry, Normal Color. No: Rashes Lymphatic: Present: Other (submental node palpable and tender) Psychiatric: Present: Alert, Oriented x 3, Normal Insight, Normal Concentration Disposition/Present on Arrival - Present on Arrival Any Indicators Present on Arrival: No History of DVT/PE: No History of Uncontrolled Diabetes: No Urinary Catheter: No History of Decub. Ulcer: No History Surgical Site Infection Following: None - Disposition Have Diagnosis and Disposition been Completed?: Yes Diagnosis: Pharyngitis, Lymphadenopathy Disposition: HOME/ ROUTINE Disposition Time: 10:20 Patient Plan: Discharge Condition: STABLE Discharge Instructions (ExitCare): Sore Throat in Adults Additional Instructions: Follow up with your Doctor Return to ED for any new or worsening symptoms Prescriptions: Amoxicillin 500 mg PO TID #21 tablet Referrals: Ambreen Li MD [Medical Doctor] - Follow up with primary
[2018-05-05 11:02] VITALS: BP 107/58; PULSE 66; RESP 18
== END 2018-05-05 10:55 | disposition home or self-care (01) ==
LOC: ED 09:40
DX: J02.9 Acute pharyngitis, unspecified (principal); R59.1 Generalized enlarged lymph nodes